=== PATIENT | male | born 1950 | race Caucasian/White ===

== ENCOUNTER 2017-05-07 13:00 | Day surgery (SDC) | payer OTHER ==
--- NOTE | 2017-05-06 12:55 | PCM.HPANE ---
Patient Data Surgeon Admitting Provider: Attending Provider:Surya Kowalski MD Primary Care Physician:Marci Jacinto Other Provider:Karol Person Anesthesia Reason for Visit Alcoholic Cirrhosis Of The Liver Ht/WT & BMI Body Mass Index Allergies Coded Allergies: No Known Allergies (Verified Allergy, Unknown, 05/06/17) Past Anesthesia History Anesthesia History: Denies:: Abnormal Airway, Anesthesia Reactions, Difficult Intubation, Fam Anesthesia Reaction, Fam Malignant Hypertherm, Malignant Hyperthermia Diabetes History Hx Diabetes?: No Medications Reported Medications Omeprazole 40 Mg Capsule.dr40 Mg PO DAILY Ref 0 05/06/17 Metoprolol Succinate ER 25 Mg Tab.er.24h25 Mg PO DAILY Ref 0 05/06/17 Furosemide (Lasix)40 Mg Tyukjj27 Mg PO DAILY 30 Days Ref 0 05/06/17 Lactulose 20 Gm/30 Ml Hkmdyozv62 Gm PO TID 05/06/17 Spironolactone (Aldactone)100 Mg Qzvamv410 Mg PO DAILY Ref 0 05/06/17 History History of ENT Problems?: Yes HEENT History: Denies:: Abnormal Airway Cataracts Difficult Intubation Dysphagia Glaucoma Hearing Problem Sinus Problem TMJ Denture Type: None Teeth Condition: Within Normal Limits Hx of Heart Problems?: Yes Cardiovascular History: Positive for:: Hypertension Denies:: AICD Abdominal Aortic Aneurism Atrial Fibrillation Cardiac Surgery Chest Pain Congestive Heart Failure Coronary Artery Disease Edema Heart Murmur Irregular Heartbeat Pacemaker Peripheral Vascular Rheumatic Fever Thrombophlebitis Valvular Heart Disease Hx of Respiratory Problem?: Yes Respiratory History: Denies:: Asthma COPD Chest Surgery Cough Dyspnea Emphysema Hemoptysis Oxygen Administration Pneumonia Pulmonary Embolism Tuberculosis Use of C-PAP Machine Use of Inhalers / NEBS Hx Neurologic Problems?: Yes Neurological History: Denies:: Alzheimer's Disease CVA Dementia Dizziness Headaches Multiple Sclerosis Parkinson's Disease Peripheral Neuropathy Seizures TIA Hx of GI Problems?: Yes Gastrointestinal History: Denies:: Cirrhosis Diverticulitis Gall Bladder Disease Gastroesphageal Reflux Gastrointestinal Bleeding Heartburn Hepatitis Hiatal Hernia Liver Disease Rectal Bleeding Hx of Problems?: Yes Genitourinary History: Denies:: HX of Hemodialysis Kidney Stones Urinary Tract Infection Male Hx: Denies:: Prostate Problems Scrotal Mass Testicular Surgery Skin History: Denies:: History Skin Disorders? Pressure Ulcers Hx Musculoskeletal Problems?: Yes Musculoskeletal History: Denies:: Back Injury Degenerative Joint Fibromyalgia Joint Replacement Musculoskeletal Trauma Myasthenia Gravis Osteoarthritis Rheumatoid Arthritis Systemic Lupus Hx of Psycho/Social Problems?: Yes Psycho Social History: Denies:: Anxiety Bipolar Disorder Hx Depression Suicide Attempt Hx Surgeries?: Yes Hx Any Other Health Problems?: Yes Other History: Denies:: Cancer Endocrine Disease Hospitalization Thyroid Disease History Blood Transfusions: Denies:: Accept Blood Products? Blood Transfuse Reaction Blood Transfusions Hx Diabetes: No Hx Alcohol Use: YesHx Substance Use: NoHave You Smoked inLast 12 mo: No Stop/Bang Risk Assessment Category Category 1A: Patient has history of documented sleep apnea, and HAS NOT received any narcotic, sedative or anesthesia administration during this stay. Category 1B: Patient has history of documented sleep apnea, and HAS received any narcotic , sedative or anesthesia administration during this stay Category 2: Patient has SUSPECTED Obstructive Sleep Apnea, and HAS received any narcotic , sedative or anesthesia administration during this stay. Category 3: Patient has SUSPECTED Obstructive Sleep Apnea and HAS NOT received narcotic, sedative or anesthesia administration during this stay. Category 4: Outpatient in Procedural Areas with known sleep apnea or who screen positive for High Risk via the STOP/BANG questionnaire. Exam Exam General Appearance: Alert, Oriented X3, Cooperative HEENT/AIRWAY: MP 2 Lungs: Clear to Auscultation Heart: Exam Unremarkable Plan Impression Patient chart reviewed, patient interviewed and anesthestic plan with risks, benefits, and alternatives discussed, and informed consent obtained. ASA Physical Status: ASA2 Mod Systemic Disease Anesthetic Plan: GA Bene/Risks/Altern/Consents: Yes HP Complete Prior to Induction: Yes Alan Vasquez MD May 06, 2017 12:55
[~2017-05-07] VITALS: Ht 188 cm; Wt 87.5 kg
[~2017-05-07 13:00] MED LIST: FURO-128 PO; LACT10SO60 PO; Lactated Ringer's 1,000 ML IV ONE; METO25TA99 PO; OMEP40CA36 PO; SPIR100T PO
[2017-05-07] MEDS ORDERED: Glycopyrrolate 0.2 MG/ML 1mL Inj ONE (13:01)
[2017-05-07] MEDS ORDERED: fentaNYL-PF 50 mCg/mL 2 mL Inj ONE (13:01)
[2017-05-07] MEDS ORDERED: Propofol 10,000 mCg/mL 20 mL Inj ONE (13:01)
[2017-05-07] MEDS ORDERED: EPHEDrine/NS 5 mg/mL 5 mL Syringe ONE (13:01)
[2017-05-07 13:30] VITALS: BP 129/75; PULSE 53; RESP 14; O2SAT 98
[2017-05-07] MEDS ORDERED: Ondansetron 2 mg/mL 2 mL Inj IVPUSH PRN (14:15)
[2017-05-07] MEDS ORDERED: MetoCLOpramide 5 mg/mL 2 mL Inj IVPUSH PRN (14:15)
[2017-05-07] MEDS ORDERED: Lactated Ringer's 1,000 ML IV SCH (14:15)
[2017-05-07 14:48] VITALS: BP 140/77; PULSE 74; RESP 16; O2SAT 99
[2017-05-07 14:58] VITALS: BP 141/83; PULSE 70; RESP 16; O2SAT 99
--- NOTE | 2017-05-07 15:00 | PCM.ANEP1 ---
Post Anesthesia PACU Phase 1 Assessment Vital Signs Vital Signs Date Time Temp Pulse Resp B/P Pulse Ox O2 Delivery O2 Flow Rate FiO2 05/07/17 14:58 70 16 141/83 99 Room Air 05/07/17 14:48 74 16 140/77 99 Room Air 05/07/17 13:30 36.4 53 14 129/75 98 Room Air Anesthetic Administered: GA Level of Alertness: Awake, talking MCMAHAN's with Equal Strength: Yes Pain: No Nausea or Vomiting: No CV Function & Hydration Stable: Yes Airway Device: Oxygen Delivery: Room Air Lungs: Clear to Auscultation PACU Phase 2 Assessment Complications: No Follow up Care: No Patient Instructions Provided: N/A Alan Vasquez MD May 07, 2017 15:00
--- NOTE | 2017-05-07 16:01 | ENDO ---
[address] [address] ENDOSCOPY PROCEDURE PATIENT: BIRD GALAN : 1950 MR#: [id number] ADMIT: 05/07/2017 JOB ID: [id number] DATE: 05/07/2017 TYPE OF OPERATION: EGD with esophageal banding x3. PREOPERATIVE DIAGNOSIS: Cirrhosis and esophageal varices. POSTOPERATIVE DIAGNOSIS(ES): 1. Moderate portal hypertensive gastropathy. 2. grade 2 esophageal varices, four columns, distal esophagus, status post banding x3, Without red jia sign. ANESTHESIA: Monitored anesthesia care. COMPLICATIONS: None. BLOOD LOSS: Minimal. DESCRIPTION OF PROCEDURE: After risks and benefits explained to the patient, informed consent was obtained. After anesthesia administered, upper endoscope was inserted into the mouth, intubated into the esophagus, stomach, second portion of duodenum. Mucosa carefully examined. After procedure was done, the scope was withdrawn and the procedure terminated. FINDINGS: Upon inspection of the esophagus, there were four columns of grade 2 esophageal varices without red jia sign. Z-line located 40 cm from incisors. Upon entering the stomach, there was mild portal hypertensive gastropathy. No masses or ulcers were seen. Retroflexion showed no evidence of gastric varices. Duodenal bulb, 1st and 2nd portion were normal. Afterwards, three bands were deployed from distal to proximal in fashion in the esophagus at the esophageal varices successfully. IMPRESSION: 1. Moderate portal hypertensive gastropathy. 2. Four columns of grade 2 esophageal varices, status post banding x3. RECOMMENDATIONS: 1. Soft diet. 2. Repeat EGD with anesthesia for repeat banding for esophageal varices in two weeks as an outpatient. 3. Follow up in GI clinic as needed.
== END 2017-05-07 23:59 | disposition home or self-care (01) ==
LOC: END 13:00
PROVIDERS: ATTEND Internal Medicine Gastroenterology
DX: K70.30 Alcoholic cirrhosis of liver without ascites (principal); I85.10 Secondary esophageal varices without bleeding; K76.6 Portal hypertension; K31.89 Other diseases of stomach and duodenum; Z87.891 Personal history of nicotine dependence
CPT/HCPCS: 43244; J2250; J3010; J7120

== ENCOUNTER 2017-05-24 09:18 | Day surgery (SDC) | payer OTHER ==
[~2017-05-24] VITALS: Ht 188 cm; Wt 87.0 kg
[~2017-05-24 09:18] MED LIST changes: -Lactated Ringer's 1,000 ML IV ONE; +Lactated Ringer's 1,000 ML IV SCH; +MELA1TAB9 PO
[2017-05-24] MEDS ORDERED: Ketamine 10 mg/mL 20 mL Inj ONE (09:19)
[2017-05-24] MEDS ORDERED: Ondansetron 2 mg/mL 2 mL Inj ONE (09:19)
[2017-05-24] MEDS ORDERED: Propofol 10,000 mCg/mL 20 mL Inj ONE (09:19)
[2017-05-24] MEDS ORDERED: Glycopyrrolate 0.2 MG/ML 1mL Inj ONE (09:19)
[2017-05-24 09:27] VITALS: BP 131/76; PULSE 58; O2SAT 96
--- NOTE | 2017-05-24 09:48 | PCM.HPANE ---
Patient Data Date of Service: May 24, 2017 Surgeon Admitting Provider: Attending Provider:Surya Kowalski MD Primary Care Physician:Marci Jacinto Other Provider:Karol Person Anesthesia Reason for Visit Bleeding Esophageal Varcies Ht/WT & BMI Height (Feet): 6 Height (Inches): 2 Weight (Kilograms): 87 Body Mass Index 24.00 Allergies Coded Allergies: No Known Allergies (Verified Allergy, Unknown, 05/24/17) Past Anesthesia History Anesthesia History: Denies:: Abnormal Airway, Anesthesia Reactions, Difficult Intubation, Fam Anesthesia Reaction, Fam Malignant Hypertherm, Malignant Hyperthermia Diabetes History Hx Diabetes?: No MRSA MRSA: No Medications Hypertension Medication: Yes Home Meds Incl Beta Bimal: Yes Date Beta Bimal Taken: May 23, 2017 Time Beta Bimal Taken: 09:00 Reported Medications Melatonin 1 Mg Tablet1 Mg PO HS 05/23/17 Omeprazole 40 Mg Capsule.dr40 Mg PO DAILY Ref 0 05/06/17 Metoprolol Succinate ER 25 Mg Tab.er.24h25 Mg PO DAILY Ref 0 05/06/17 Furosemide (Lasix)40 Mg Gjvvau80 Mg PO DAILY 30 Days Ref 0 05/06/17 Lactulose 20 Gm/30 Ml Rbfvwlsb34 Gm PO TID 05/06/17 Spironolactone (Aldactone)100 Mg Iavlfw990 Mg PO DAILY Ref 0 05/06/17 History History of ENT Problems?: Yes HEENT History: Denies:: Abnormal Airway Difficult Intubation Dysphagia Hearing Problem Denture Type: None Teeth Condition: Within Normal Limits Hx of Heart Problems?: Yes Cardiovascular History: Positive for:: Hypertension Denies:: AICD Atrial Fibrillation Chest Pain Congestive Heart Failure Pacemaker Valvular Heart Disease Hx of Respiratory Problem?: Yes Respiratory History: Positive for:: Cough Denies:: Asthma COPD Hemoptysis Pneumonia Tuberculosis Other Resp Pertinent History: non-productive cough since 04/2017 Hx Neurologic Problems?: No Neurological History: Denies:: CVA Seizures TIA Hx of GI Problems?: Yes Gastrointestinal History: Positive for:: Cirrhosis Hepatitis Liver Disease Other GI Pertinent History: esophageal varices Hx of Problems?: No HX of Peritoneal Dialysis: No Male Hx: Denies:: Prostate Problems Scrotal Mass Testicular Surgery Skin History: Denies:: History Skin Disorders? Pressure Ulcers Hx Musculoskeletal Problems?: No Musculoskeletal History: Denies:: Joint Replacement Psycho Social History: Denies:: Anxiety Hx Depression Hx Surgeries?: Yes (UMBILICAL HERNIA X2, ING HERNIA, ) Hx Any Other Health Problems?: Yes History Blood Transfusions: Positive for:: Accept Blood Products? Blood Transfusions Hx Diabetes: No Hx Alcohol Use: Yes (occasional alcohol use, none since 12/2016)Hx Substance Use : No Smoking Status: Former Smoker Have You Smoked inLast 12 mo: No Stop/Bang Treated for Sleep Apnea?: No Do You Have a CPAP Machine?: No S-Snoring: Do You Snore Loudly: No T-Tired: feel tired, fatigued: No O-Obsered: Observed not breath: No P-Blood Pressure: treated: Yes B- Body Mass Index > 35 kg/m2: No A- Age over 50: Yes N- Neck Large Circumference: No G- Gender Male: Yes VIVIAN Total Score: 3 VIVIAN Risk Assessment: Low Risk, <3 Yes Risk Assessment Category Category 1A: Patient has history of documented sleep apnea, and HAS NOT received any narcotic, sedative or anesthesia administration during this stay. Category 1B: Patient has history of documented sleep apnea, and HAS received any narcotic , sedative or anesthesia administration during this stay Category 2: Patient has SUSPECTED Obstructive Sleep Apnea, and HAS received any narcotic , sedative or anesthesia administration during this stay. Category 3: Patient has SUSPECTED Obstructive Sleep Apnea and HAS NOT received narcotic, sedative or anesthesia administration during this stay. Category 4: Outpatient in Procedural Areas with known sleep apnea or who screen positive for High Risk via the STOP/BANG questionnaire. Exam Exam Vital Signs Vital Signs Date Time Temp Pulse Resp B/P Pulse Ox O2 Delivery O2 Flow Rate FiO2 05/24/17 09:27 36.5 58 131/76 96 Room Air General Appearance: Alert, Oriented X3, Cooperative, No Acute Distress HEENT/AIRWAY: MP 3, Neck Movement (from), Mouth Opening (>3), Other (TMD>3) Lungs: Normal Air Movement Heart: Exam Unremarkable, Regular Rate/Rhythm, Normal S1, Normal S2, No Murmurs /Rubs/Gallops Plan Impression Patient chart reviewed, patient interviewed and anesthestic plan with risks, benefits, and alternatives discussed, and informed consent obtained. NPO per Anesth. Guidelines: Yes ASA Physical Status: ASA3 Severe Disease Anesthetic Plan: TIVA Bene/Risks/Altern/Consents: Yes HP Complete Prior to Induction: Yes Suraj Estevez MD May 24, 2017 09:48
[2017-05-24 10:08] VITALS: BP 106/66; PULSE 66; RESP 16; O2SAT 97
[2017-05-24 10:18] VITALS: BP 106/65; PULSE 67; RESP 16; O2SAT 100
[2017-05-24 10:28] VITALS: BP 138/76; PULSE 59; RESP 16; O2SAT 100
--- NOTE | 2017-05-24 10:44 | ENDO ---
[address] [address] ENDOSCOPY PROCEDURE PATIENT: BIRD GALAN : 1950 MR#: [id number] ADMIT: 05/24/2017 JOB ID: [id number] DATE: 05/24/2017 TYPE OF OPERATION: Esophagogastroduodenoscopy. PREOPERATIVE DIAGNOSIS(ES): 1. Cirrhosis. 2. Esophageal varices. POSTOPERATIVE DIAGNOSIS(ES): 1. Complete obliteration of esophageal varices from prior banding. 2. Moderate portal hypertensive gastropathy. ANESTHESIA: Monitored anesthesia care. COMPLICATIONS: None. BLOOD LOSS: Minimal. DESCRIPTION OF PROCEDURE: After risks and benefits were explained to the patient, informed consent was obtained. After anesthesia administered, upper endoscope was then inserted into the mouth,intubating through the esophagus, stomach, second portion of duodenum. Mucosa carefully examined. After procedure was done, the scope withdrawn and procedure terminated. FINDINGS: Upon inspection of the esophagus, the esophagus showed two ulcers in distal esophagus from prior banding. The esophageal varices that were previously seen were completely obliterated. Z-line located 40 cm from incisors. Upon entering the stomach, there was moderate portal hypertensive gastropathy. No gastric varices were seen on retroflexion. Duodenal bulb, first and second portion were normal. IMPRESSIONS: 1. Complete obliteration of esophageal varices. 2. Moderate portal hypertensive gastropathy. RECOMMENDATIONS: 1. Repeat upper endoscopy in one month with anesthesia for varices surveillance after obliteration. 2. Followup in GI clinic as needed.
--- NOTE | 2017-05-24 12:55 | PCM.ANEP1 ---
Post Anesthesia PACU Phase 1 Assessment Date of Service: May 24, 2017 Vital Signs Vital Signs Date Time Temp Pulse Resp B/P Pulse Ox O2 Delivery O2 Flow Rate FiO2 05/24/17 10:28 59 16 138/76 100 Room Air 05/24/17 10:18 67 16 106/65 100 Room Air 05/24/17 10:08 36.5 66 16 106/66 97 Room Air 05/24/17 09:27 36.5 58 131/76 96 Room Air Anesthetic Administered: TIVA Level of Alertness: Awake, talking MCMAHAN's with Equal Strength: Yes Pain: No Pain Scale Score: 0 Nausea or Vomiting: No CV Function & Hydration Stable: Yes Airway Device: none in PACU Oxygen Delivery: Room Air Lungs: Normal Air Movement Summary 05/24/17 10:28 59 16 138/76 100 Room Air PACU Phase 2 Assessment Complications: No Follow up Care: N/A Patient Instructions Provided: N/A Suraj Estevez MD May 24, 2017 12:55
== END 2017-05-24 23:59 | disposition home or self-care (01) ==
LOC: END 09:18
PROVIDERS: ATTEND Internal Medicine Gastroenterology
DX: K76.6 Portal hypertension (principal); K31.89 Other diseases of stomach and duodenum; K70.31 Alcoholic cirrhosis of liver with ascites; I10 Essential (primary) hypertension; K92.0 Hematemesis; F10.21 Alcohol dependence, in remission; Z87.891 Personal history of nicotine dependence
CPT/HCPCS: 43235; J2250; J2405; J7120

== ENCOUNTER 2017-06-25 09:30 | Day surgery (SDC) | payer OTHER ==
[~2017-06-25] VITALS: Ht 188 cm; Wt 90.7 kg
[~2017-06-25 09:30] MED LIST changes: -Lactated Ringer's 1,000 ML IV SCH
[2017-06-25] MEDS ORDERED: Propofol 10,000 mCg/mL 20 mL Inj ONE (09:31)
[2017-06-25 09:46] VITALS: BP 132/79; PULSE 75; O2SAT 100
[2017-06-25] MEDS ORDERED: MetoCLOpramide 5 mg/mL 2 mL Inj IVPUSH PRN (10:15)
[2017-06-25] MEDS ORDERED: Lactated Ringer's 1,000 ML IV SCH (10:15)
[2017-06-25] MEDS ORDERED: Ondansetron 2 mg/mL 2 mL Inj IVPUSH PRN (10:15)
--- NOTE | 2017-06-25 10:15 | PCM.HPANE ---
Patient Data Surgeon Admitting Provider: Attending Provider:Surya Kowalski MD Primary Care Physician:Marci Jacinto Other Provider:Karol Person Anesthesia Reason for Visit Bleeding Esophageal Varices Ht/WT & BMI Body Mass Index Allergies Coded Allergies: No Known Allergies (Verified Allergy, Unknown, 06/21/17) Past Anesthesia History Anesthesia History: Denies:: Abnormal Airway, Anesthesia Reactions, Difficult Intubation, Fam Anesthesia Reaction, Fam Malignant Hypertherm, Malignant Hyperthermia Diabetes History Hx Diabetes?: No MRSA MRSA: No Medications Reported Medications Melatonin 1 Mg Tablet1 Mg PO HS 05/23/17 Metoprolol Succinate ER 25 Mg Tab.er.24h25 Mg PO DAILY Ref 0 05/06/17 Furosemide (Lasix)40 Mg Mdxomw33 Mg PO DAILY 30 Days Ref 0 05/06/17 Lactulose 20 Gm/30 Ml Jasvzuji11 Gm PO TID 05/06/17 Discontinued Reported Medications Omeprazole 40 Mg Capsule.dr40 Mg PO DAILY Ref 0 05/06/17 Spironolactone (Aldactone)100 Mg Eqjwml577 Mg PO DAILY Ref 0 05/06/17 History History of ENT Problems?: Yes HEENT History: Denies:: Abnormal Airway Difficult Intubation Dysphagia Hearing Problem Denture Type: None Teeth Condition: Within Normal Limits Hx of Heart Problems?: Yes Cardiovascular History: Positive for:: Hypertension Denies:: AICD Atrial Fibrillation Chest Pain Congestive Heart Failure Pacemaker Valvular Heart Disease Hx of Respiratory Problem?: Yes Respiratory History: Positive for:: Cough Denies:: Asthma COPD Hemoptysis Pneumonia Tuberculosis Hx Neurologic Problems?: No Neurological History: Denies:: CVA Seizures Hx of GI Problems?: Yes Hx of Problems?: No HX of Peritoneal Dialysis: No Male Hx: Denies:: Prostate Problems Scrotal Mass Testicular Surgery Skin History: Denies:: History Skin Disorders? Pressure Ulcers Hx Musculoskeletal Problems?: No Musculoskeletal History: Denies:: Joint Replacement Psycho Social History: Denies:: Anxiety Hx Depression Hx Surgeries?: Yes (UMBILICAL HERNIA X2, ING HERNIA, ) Hx Any Other Health Problems?: Yes History Blood Transfusions: Positive for:: Blood Transfusions Hx Diabetes: No Hx Alcohol Use: Yes (occasional alcohol use, none since 12/2016)Hx Substance Use : No Smoking Status: Former Smoker Have You Smoked inLast 12 mo: No Stop/Bang Risk Assessment Category Category 1A: Patient has history of documented sleep apnea, and HAS NOT received any narcotic, sedative or anesthesia administration during this stay. Category 1B: Patient has history of documented sleep apnea, and HAS received any narcotic , sedative or anesthesia administration during this stay Category 2: Patient has SUSPECTED Obstructive Sleep Apnea, and HAS received any narcotic , sedative or anesthesia administration during this stay. Category 3: Patient has SUSPECTED Obstructive Sleep Apnea and HAS NOT received narcotic, sedative or anesthesia administration during this stay. Category 4: Outpatient in Procedural Areas with known sleep apnea or who screen positive for High Risk via the STOP/BANG questionnaire. Exam Exam General Appearance: Alert HEENT/AIRWAY: MP 2, Neck Movement (FROM, 3 FB) Plan Impression Patient chart reviewed, patient interviewed and anesthestic plan with risks, benefits, and alternatives discussed, and informed consent obtained. NPO per Anesth. Guidelines: Yes ASA Physical Status: ASA3 Severe Disease Anesthetic Plan: MAC Bene/Risks/Altern/Consents: Yes HP Complete Prior to Induction: Yes Edward Livingston MD Jun 25, 2017 09:39
[2017-06-25] MEDS: Lactated Ringer's 1,000 ML IV ONE ×2 (10:18→10:24)
[2017-06-25 10:30] VITALS: BP 116/70; PULSE 76; RESP 16; O2SAT 97
--- NOTE | 2017-06-25 10:37 | PCM.ANEP1 ---
Post Anesthesia PACU Phase 1 Assessment Vital Signs Vital Signs Date Time Temp Pulse Resp B/P Pulse Ox O2 Delivery O2 Flow Rate FiO2 06/25/17 10:30 76 16 116/70 97 Room Air 06/25/17 09:46 37.1 75 132/79 100 Room Air Anesthetic Administered: MAC Level of Alertness: Awake, talking MCMAHAN's with Equal Strength: Yes Pain: No Nausea or Vomiting: No CV Function & Hydration Stable: Yes Airway Device: Oxygen Delivery: Room Air Lungs: Clear to Auscultation Dermatome Level: Full Sensation PACU Phase 2 Assessment Complications: No Follow up Care: N/A Patient Instructions Provided: N/A Edward Livingston MD Jun 25, 2017 10:37
[2017-06-25 10:40] VITALS: BP 121/73; PULSE 70; RESP 16; O2SAT 97
[2017-06-25 10:50] VITALS: BP 130/69; PULSE 61; RESP 16; O2SAT 97
--- NOTE | 2017-06-25 11:01 | ENDO ---
[address] [address] ENDOSCOPY PROCEDURE PATIENT: BIRD GALAN : 1950 MR#: [id number] ADMIT: 06/25/2017 JOB ID: [id number] DATE OF SURGERY: 06/25/2017 TYPE OF OPERATION: Esophagogastroduodenoscopy. PREOPERATIVE DIAGNOSIS(ES): Esophageal varices surveillance, cirrhosis. POSTOPERATIVE DIAGNOSIS(ES): 1. Complete obliteration esophageal varices. 2. Moderate portal hypertensive gastropathy. ANESTHESIA: Monitored anesthesia care. COMPLICATIONS: None. BLOOD LOSS: Minimal. DESCRIPTION OF PROCEDURE: After risks and benefits were explained, the informed consent was obtained. After anesthesia administered, upper endoscope was inserted into the mouth, intubated the esophagus, stomach, second portion of duodenum mucosa is carefully examined. After the procedure done, the scope withdrawn and procedure terminated. FINDINGS: Upon inspection esophagus showed no evidence of esophageal varices from complete obliteration from prior banding. Z-line located at 45 cm from incisors. Upon entering the stomach, there was moderate portal hypertensive gastropathy. Retroflexion showed no gastric varices. Duodenal bulb, first and second portion normal. IMPRESSIONS: 1. Stable complete obliteration esophageal varices. 2. Moderate portal hypertensive gastropathy. RECOMMENDATIONS: Repeat upper endoscopy in 6 months with anesthesia for esophageal varices surveillance after obliteration. Follow up in GI clinic as needed.
== END 2017-06-25 23:59 | disposition home or self-care (01) ==
LOC: END 09:30
PROVIDERS: ATTEND Internal Medicine Gastroenterology
DX: I85.01 Esophageal varices with bleeding (principal); K76.6 Portal hypertension; K31.89 Other diseases of stomach and duodenum; I10 Essential (primary) hypertension; R05 Cough; Z87.891 Personal history of nicotine dependence; Z79.899 Other long term (current) drug therapy
CPT/HCPCS: 43235; J2250; J2704; J7120

== ENCOUNTER 2017-07-15 05:35 | Inpatient (IN) | payer OTHER ==
[2017-07-15] VITALS (14 sets, daily range): BP systolic 105–146; BP diastolic 58–79; PULSE 15–105; RESP 13–20; O2SAT 95–100
[~2017-07-15] VITALS: Ht 188 cm; Wt 89.4 kg
[~2017-07-15 05:35] MED LIST changes: +METO-386 PO; -METO25TA99 PO; -OMEP40CA36 PO; -SPIR100T PO
[2017-07-15] MEDS ORDERED: 0.9% Sodium Chloride 1,000 ML IV ONE ×2 (05:42→05:47)
[2017-07-15] MEDS ORDERED: Ondansetron 2 mg/mL 2 mL Inj IVPUSH ONE (05:45)
[2017-07-15] MEDS ORDERED: Pantoprazole 4 mg/mL 10 mL Inj IVPUSH ONE (05:45)
[2017-07-15] MEDS ORDERED: Pantoprazole Inj 80 MG, Pharmacy To Mix 1 EA in 0.9% Sodium Chloride 80 ML IV ONE ×2 (05:50)
[2017-07-15] MEDS ORDERED: Octreotide Inj 500 MCG in 0.9% Sodium Chloride 100 ML IV ONE (05:50)
[2017-07-15 06:05] LABS: BASOPHILS % (AUTO) 0.1 % (0-3); EOSINOPHILS % (AUTO) 0.1 % (0-5); MONOCYTES % (AUTO) 5.1 % (4-12); Mean Corpuscular Hemoglobin 33.3 pg (27.0-35.0); Mean Corpuscular Volume 98.2 fL (81-100); NEUTROPHILS % (AUTO) 84.7 % (40-74); Platelet Count 166 bil/L (150-400)
[2017-07-15] MEDS ORDERED: cefTRIAXone Inj 1,000 MG, Lidocaine PF 1% Inj 2.1 ML in Syringe 0 EACH IM ONE (06:15)
--- NOTE | 2017-07-15 06:15 | ED.REPORT ---
HPI-General Illness Date of Service Jul 15, 2017 ED Provider: Salvador Waterman MD This is a 66-year-old male with history of alcoholic cirrhosis status post TIPS procedure and esophageal varices status post banding 6 weeks prior who presents to the emergency department for black diarrhea and vomiting. Patient reports this has been going on since yesterday afternoon. He has had about 20 episodes of black diarrhea since then and 2 episodes of coffee-ground emesis this morning. The symptoms are similar to prior esophageal varices requiring banding. He does not have any abdominal pain associated with this. He does report having dizziness and subjective fever with chills starting this morning. He denies chest pain, cough or urinary changes. Patient reports he did have a possible syncopal episode finding himself on the ground and denies hitting his head. Nursing Notes Stated Complaint: VOMITING/GI BLEED Chief Complaint: Male Abdominal Pain Nursing Notes Reviewed: Yes Allergies: Coded Allergies: No Known Allergies (Verified Allergy, Unknown, 07/15/17) Scheduled Furosemide (Furosemide) 40 Mg Tablet 40 MG PO DAILY Lactulose (Lactulose) 10 Gm/15 Ml Solution 30 ML PO TID Melatonin (Melatonin) 3 Mg Tablet 3 MG PO HS Spironolactone (Spironolactone) 100 Mg Tablet 100 MG PO DAILY Scheduled PRN Naproxen Sodium (Aleve) 220 Mg Capsule 220 MG PO PRN For Pain General Time Seen by MD: 05:44 Chief Complaint Blood in stool Hx Obtained From: Patient Past Medical History Past Medical History Alcoholic cirrhosis status post TIPS procedure Esophageal varices with banding Past Surgical History TIPS procedure Hernia repair Smoking History Former Smoker Social History Alcohol Use: Denies alcohol use Drug Use: Denies drug use Review of Systems Full Review of Systems Constitutional: Reports: Chills, Fever (subjective) Eyes: Denies: Blurred bilateral Ears / Nose / Throat: Denies: Sore throat Respiratory: Reports: Shortness of breath Cardiovascular: Denies: Chest pain GI: Reports: Bloody/tarry stool, Diarrhea, Hematemesis, Nausea, Vomiting, Denies: Abdominal pain Male: Denies Dysuria Musculoskeletal: Denies: Back pain, Neck pain Hematologic: Denies Bruising Endocrine: Denies: Polyuria Skin: Denies Rash Allergy / Immune: Denies: Itching Neurologic: Denies: Confusion Psychiatric: Denies: Change mental status Complete sys rev & neg: except as marked. Physical Exam Vital Signs Vital Signs Date Time Temp Pulse Resp B/P Pulse Ox O2 Delivery O2 Flow Rate FiO2 07/15/17 09:13 86 15 120/62 99 Room Air 07/15/17 07:20 15 13 123/58 100 Room Air 07/15/17 05:41 36.3 105 17 139/74 100 Room Air Initial VS: Reviewed General/Constitutional: Well-developed, Well-nourished Head / Eyes: Atraumatic, Normocephalic ENT: Mucous membranes moist, Conjunctiva normal, No scleral icterus Neck: Supple, Full range of motion Respiratory: Breath sounds normal, Clear to auscultation, No respiratory distress Cardiovascular: Heart sounds normal, Intact distal pulses Abdomen / GI: Soft, Non-tender, No guarding, No rebound, No distention Skin: Warm, Dry Neurologic: Alert, Oriented, Nonfocal Psychiatric: Mood/affect normal, Behavior normal, Normal thought content General/Constitutional: Awake, Alert, No acute distress, Cooperative, Not toxic appearing Head / Eyes: No scleral icterus, Conjunctiva NL Heart Rate / Rhythm: Positive: Tachycardia Interpretation & Diagnostics Lab Results Interpretation Result Diagram: 07/15/17 0555 07/15/17 0555 Test 07/15/17 05:55 07/15/17 08:50 White Blood Count 11.2th/mm3 (3.8-10.1) Red Blood Count 2.85mil/mm3 (4.40-5.80) Hemoglobin 9.5g/dL (13.8-17.2) Hematocrit 28.0% (41.0-50.0) Mean Corpuscular Volume 98.2fL (81-100) Mean Corpuscular Hemoglobin 33.3pg (27.0-35.0) Mean Corpuscular Hemoglobin Concent 33.9% (32.0-37.0) Red Cell Distribution Width 17.4% (12.3-15.4) Platelet Count 166bil/L (150-400) Neutrophils (%) (Auto) 84.7% (40-74) Lymphocytes (%) (Auto) 9.7% (14-46) Monocytes (%) (Auto) 5.1% (4-12) Eosinophils (%) (Auto) 0.1% (0-5) Basophils (%) (Auto) 0.1% (0-3) Prothrombin Time 15.1sec (8.1-12.5) Prothromb Time International Ratio 1.40ratio Sodium Level 138mEq/L (134-144) Potassium Level 5.0mEq/L (3.5-5.2) Chloride Level 102mEq/L (97-108) Carbon Dioxide Level 17mmol/L (18-29) Blood Urea Nitrogen 45mg/dL (8-27) Creatinine 0.85mg/dL (0.76-1.27) Estimat Glomerular Filtration Rate 96mL/min (>59) Glucose Level 137mg/dL (60-99) Calcium Level 9.6mg/dL (8.5-10.1) Magnesium Level 1.8mg/dL (1.6-2.6) Total Bilirubin 1.8mg/dL (0.0-1.2) Aspartate Amino Transf (AST/SGOT) 53U/L (0-50) Alanine Aminotransferase (ALT/SGPT) 36U/L (0-44) Alkaline Phosphatase 84U/L (25-160) Troponin T 0.010ug/L (0.0-0.011) Total Protein 6.2g/dL (6.4-8.4) Albumin 3.2g/dL (3.4-5.0) Hold Farnsworth Top Tube Received (Received) Urine Color Yellow (YELLOW) Urine Appearance Clear (CLEAR,HAZY) Urine pH 6.0 (5.0-8.0) Urine Specific Freer 1.025 (1.003-1.035) Urine Protein Negativemg/dL (NEG,TRACE) Urine Glucose (UA) Negativemg/dL (NEGATIVE) Urine Ketones Negativemg/dL (NEGATIVE) Urine Occult Blood Negative (NEGATIVE) Urine Nitrite Negative (NEGATIVE) Urine Bilirubin Negative (NEGATIVE) Urine Urobilinogen Normalmg/dL (NORMAL) Urine Leukocyte Esterase Negative (NEGATIVE) Urine RBC 0-2/hpf (0-2) Urine WBC 0-5/hpf (0-5) Urine Epithelial Cells Few/hpf (NONE-MOD) Urine Crystals None seen (NONE SEEN) Urine Bacteria None/hpf (NONE-FEW) Urine Hyaline Casts 5/20/lpf (NONE) Urine Granular Casts None seen (NONE SEEN) Urine Waxy Casts None seen (NONE SEEN) Urine Red Blood Cell Casts None seen (NONE SEEN) Urine White Blood Cell Casts None seen (NONE SEEN) Urine Mucus Present (None Seen) Urine Trichomonas None seen (NONE SEEN) Urine Yeast None (NONE SEEN) Urinalysis Comment None Urine Culture Reflexed Not indicated Re-Eval/Medical Decision Med Decision/Clinical Course This 66-year-old male with history of alcoholic cirrhosis status post TIPS procedure and esophageal varices with banding in April 2017 presents to the emergency department for melena and hematemesis ongoing since yesterday. Patient has had prior symptoms with previous esophageal varices. He did have an endoscopy 06/25/[address] Kowalski which showed complete obliteration of esophageal varices at that time. As patient is presenting with similar symptoms to prior esophageal varices, concern is for GI bleed. Patient is hemodynamically stable in the ED. He did have 1 loose bowel movement while in the ED which was black and guaiac positive. On physical exam patient did not have any abdominal tenderness without any signs of ascites. Patient does have WBC 11.2, Hgb 9.5. AST 53, ALT 36, INR 1.40. Patient received IV fluid, ceftriaxone, octreotide and Protonix here in the emergency department. Plan is to admit the patient. Discussed with patient who verbalized understanding. Consulted with GI, Dr. Kowalski, who plans to do scope today. Will keep patient nothing by mouth. Consultation #1: Referral / Consult Name: Surya Kowalski MD Consulted With: On-call physician (Gastroenterology) Requested Call at: 06:58 Call Returned at: 07:00 Granulator Tender: Will see patient Note: Spoke with Dr. Kowalski who plans to do a scope today. Consultation #2: Referral / Consult Name: Jony Davis MD Consulted With: Hospitalist Granulator Tender: Accepts admit Counseled Regarding: Diagnosis, Lab results, Need for follow-up, When/why to return to ED Discharge & Departure Primary Impression: Melena Additional Impressions: Hematemesis Nausea presence: with nausea Qualified Code: K92.0 - Hematemesis Upper GI bleeding Disposition: ADMITTED TO HOSPITAL Discharge Condition All VS Reviewed: Yes Condition: Stable Referrals: Marci Jacinto PAC (PCP) Attending Statement I saw and evaluated the patient in conjunction with the resident. I agree with the findings, plan, and documentation noted above. Salvador Waterman MD Jul 15, 2017 06:15 Bhaskar Daigle DO Jul 15, 2017 06:41
[2017-07-15 06:21] LABS: INR 1.4 ratio
[2017-07-15 06:25] LABS: TROPONIN T 0.01 ug/L (0.0-0.011)
[2017-07-15] MEDS ORDERED: cefTRIAXone Inj 1,000 MG in Dextrose 5% Minibag Plus 50 ML IV ONE ×2 (06:30→06:51)
[2017-07-15 06:36] LABS: Magnesium 1.8 mg/dL (1.6-2.6)
[2017-07-15] MEDS ORDERED: cefTRIAXone 1,000 mg Inj ONE (06:48)
--- NOTE | 2017-07-15 08:55 | DRSVH ---
PROCEDURE: X-RAY CHEST ONE VIEW, PORTABLE ([id number]) INDICATIONS: vomiting, ugib TECHNIQUE: One view of the chest was acquired. COMPARISON: [facility], , CHEST 1VW (PORTABLE), 01/20/2008, 1:02. FINDINGS: Surgical changes and devices: None. Lungs and pleura: No pleural effusions or pneumothorax. Lungs are clear. Mediastinum: Mediastinal contours appear normal. Heart size is normal. Bones and chest wall: No suspicious bony lesions. Overlying soft tissues appear unremarkable. IMPRESSION: 1. No acute cardiopulmonary disease. Dictated by: Sherif Rodarte M.D. on 07/15/2017 at 8:46 Approved by: Sherif Rodarte M.D. on 07/15/2017 at 8:53
[2017-07-15] MEDS ORDERED: Ondansetron 2 mg/mL 2 mL Inj IVPUSH PRN (09:25)
[2017-07-15] MEDS ORDERED: Alum-Mag Hydrox-Simeth 30 mL Suspension PO PRN (09:25)
[2017-07-15] MEDS ORDERED: Polyethylene Glycol (PEG) 17 Gm Powder PO PRN (09:25)
[2017-07-15] MEDS ORDERED: SPIR100T3 PO (09:59)
[2017-07-15] MEDS ORDERED: FURO40TA4 PO (09:59)
[2017-07-15] MEDS ORDERED: LACT10SO PO (09:59)
[2017-07-15] MEDS ORDERED: MELA3TAB35 PO (10:00)
[2017-07-15] MEDS ORDERED: NAPR220C11 PO (10:01)
[2017-07-15] MEDS: Pantoprazole Inj 80 MG in 0.9% Sodium Chloride 80 ML IV SCH ×2 (10:26→17:13)
[2017-07-15] MEDS: 0.9% Sodium Chloride 1,000 ML IV SCH ×2 (10:26→17:13)
[2017-07-15] MEDS: Octreotide Inj 500 MCG in 0.9% Sodium Chloride 99 ML IV SCH ×2 (10:27→17:13)
[2017-07-15 10:34] LABS: APPEARANCE,URINE CLEAR (CLEAR,HAZY); COLOR,URINE YELLOW (YELLOW)
[2017-07-15 10:35] LABS: OCCULT BLOOD,URINE NEGATIVE (NEGATIVE); UROBILINOGEN,URINE NORMAL (NORMAL)
--- NOTE | 2017-07-15 10:43 | NUR ---
ADMIT Admitted a 66/M into room 3031 at 0940 following report from Yasmeen Escalera, ED RN. Pt A&Ox4, pleasant, denies any pain/discomfort at this time. Pt able to amb from stretcher to BR with SBA. He reports feeling a little dizzy with change of position, per MD hospitalist, pt is to be bedrest. Pt introduced to staff, bed/call light controls. Tele in place, SR in the 90's per environmental technician. Pt has IV x2, both infusing - one with Octreotide and one with NS and Protonix. Pt is NPO, aware that GI MD will be coming by to consult. Pt on RA, denies any SOB, no distress, tolerating activity well. Guaiac was (+) in ED. Bed in lowest, locked position and call light in reach.
[2017-07-15] MEDS ORDERED: fentaNYL-PF 50 mCg/mL 2 mL Inj ONE (12:18)
--- NOTE | 2017-07-15 12:40 | NUR ---
Off unit Pt off unit to Endo, report given to Michelle Grace RN. Addendum: 07/15/17 at 1430 by MISA STANLEY RN Pt back on unit at 1410, report rec'd from AMBREEN Martinez. at bedside, pt sleeping.
--- NOTE | 2017-07-15 13:17 | PCM.HPMED ---
Subjective Date of Service Jul 15, 2017 Primary Provider: Admitting Physician: Jony Davis MD Primary Care Physician: Marci Jacinto Attending Physician: Jony Davis MD Admit Status: From the Emergency Department, Full Admit, Admit to Blue Team Chief Complaint: Dark stool/2 days Vomiting of blood /1 day History of Present Illness: 66-year-old gentleman with past medical history of alcoholic cirrhosis s/p TIPS procedure and recent endoscopy with which showed stable complete obliteration esophageal varices and moderate portal hypertensive gastropathy presented with multiple episodes of dark stool which started yesterday. He also had vomiting today twice of coffee-ground matter . He is a normal alcoholic cirrhosis patient s/p TIPS procedure 8 years ago. He undergoes routine surveillance endoscopy, latest one on 06/25/17 which showed stable complete obliteration esophageal varices and moderate portal hypertensive gastropathy last alcohol drink Jul 2016 ED course: vitals and exam unremarkable . Hb 9.5,Tbili 1.8,AST 53,albumin 3.2 IV fluids ,octreotide drip and protonix drip started GI consulted Review of Systems: Comprehensive review of systems performed, pertinent positives and negatives included in history of present illness Allergies Coded Allergies: No Known Allergies (Verified Allergy, Unknown, 07/15/17) Home Medications Spironolactone 100 mg daily Lasix 40 mg daily Lactulose PMH Alcoholic cirrhosis status post TIPS procedure Esophageal varices with banding Surgical History TIPS procedure 8 yrs ago varice banding prior to TIPS Hernia repair Family History Mother alive, age 94. She has hypertension Father at age 69 due to heart attack Brother had diabetes, nephew ( from same brother ) has also diabetes Social History Hx Alcohol Use: No Hx Substance Use: No Smoking Status: Former Smoker Exam Vital Signs Vital Sign - Last Date Time Temp Pulse Resp B/P Pulse Ox O2 Delivery O2 Flow Rate FiO2 07/15/17 10:56 36.9 88 20 116/76 100 Room Air Intake and Output 07/14/17 07/14/17 07/15/17 Cumulative From/Thru 15:00 23:00 07:00 07/15/17 05:41 - 07/15/17 06:00 Intake Total 1000 ml 1000 ml Balance 1000 ml 1000 ml Intake IV Total 1000 ml 1000 ml Exam Gen. patient is lying comfortably in hospital bed HEENT: Head is normocephalic atraumatic, Pupils equal and reactive, extraocular movements intact, Lungs clear to auscultation bilaterally Heart regular rate and rhythm without murmurs gallops or rubs Abdomen soft nontender without hepatosplenomegaly Extremities pulses are present dorsalis pedis posterior tibialis and radial. tSkin is warm and dry there are no rashes, Psych alert and oriented to person place and time Neuro cranial nerves II through XII are grossly intact Lymph: There is no lymphadenopathy appreciated in the cervical supra infraclavicular regions : no escobedo Lab and Diagnostics Result Diagram: 07/15/1755407/15/17554 Additional Diagnostics: DATE OF SURGERY: 06/25/2017 TYPE OF OPERATION: Esophagogastroduodenoscopy. PREOPERATIVE DIAGNOSIS(ES): Esophageal varices surveillance, cirrhosis. POSTOPERATIVE DIAGNOSIS(ES): 1. Complete obliteration esophageal varices. 2. Moderate portal hypertensive gastropathy. ANESTHESIA: Monitored anesthesia care. COMPLICATIONS: None. BLOOD LOSS: Minimal. DESCRIPTION OF PROCEDURE: After risks and benefits were explained, the informed consent was obtained. After anesthesia administered, upper endoscope was inserted into the mouth, intubated the esophagus, stomach, second portion of duodenum mucosa is carefully examined. After the procedure done, the scope withdrawn and procedure terminated. FINDINGS: Upon inspection esophagus showed no evidence of esophageal varices from complete obliteration from prior banding. Z-line located at 45 cm from incisors. Upon entering the stomach, there was moderate portal hypertensive gastropathy. Retroflexion showed no gastric varices. Duodenal bulb, first and second portion normal. IMPRESSIONS: 1. Stable complete obliteration esophageal varices. 2. Moderate portal hypertensive gastropathy. Assessment & Plan 66-year-old gentleman with past medical history of alcoholic cirrhosis s/p TIPS procedure and recent endoscopy with which showed stable complete obliteration esophageal varices and moderate portal hypertensive gastropathy presented with dark stool and vomiting of coffee-ground matter # Upper GI bleeding due to bleeding portal hypertension gastropathy,poa,acute -IV fluids NS at 100ml/h ,octreotide and protonix drip started . Continue with that -GI Dr Kowalski consulted by ED and EGD done shortness of coffee-ground material in the stomach with portal hypertension gastropathy. Mild gastritis. No varices -was Initially npo but will start on clears now -bowel prep today and colonoscopy tomorrow as he never had one before. # Blood loss Anemia., Acute on chronic -Hb 9.5 -No need for transfusion now. Monitor hemoglobin # alcoholic cirrhosis -Continue Lasix, spironolactone tomorrow. Resume Lactulose today ppx dvt with scd due to GI bleed,ppi drip Full code per patient Patient admitted under inpatient status with expected length of stay > 2 midnights for severity of present symptoms, complexities of treatment plan and risk for adverse events copies to: Marci Jacinto Melaku MD Jul 15, 2017 13:17
--- NOTE | 2017-07-15 14:00 | CONS ---
[address] [address] CONSULTATION REPORT PATIENT: BIRD GALAN : 1950 MR#: [id number] ADMIT: 07/15/2017 JOB ID: [id number] DATE OF SERVICE: 07/15/2017 REASON FOR CONSULTATION: Melena. HISTORY OF PRESENT ILLNESS: A 66-year-old, male, well-known to myself, history of alcoholic cirrhosis status post TIPS procedure, history of esophageal varices with complete obliteration on recent upper endoscopy, June 25, 2017, also showing moderate portal hypertensive gastropathy, who presents for consultation for melena, diarrhea, and vomiting. The patient states yesterday he ate some eggs and started having melena and vomiting. The patient states he has had 20 episodes of black diarrhea and two episodes of coffee-ground emesis this morning. The patient's most recent upper endoscopy was performed by myself on June 25, 2017, which showed complete obliteration of esophageal varices and moderate portal hypertensive gastropathy. Patient presents for further evaluation. Patient denies bright red blood per rectum, abdominal pain, change in bowel habits, or unintentional weight loss. PAST MEDICAL HISTORY: As stated above. PAST SURGERIES: TIPS procedure, hernia repair. ALLERGIES: No known drug allergies. MEDICATION AT HOME: Lasix, lactulose, melatonin, metoprolol. SOCIAL HISTORY: Former smoker. No IV drug use. No alcohol. FAMILY HISTORY: Noncontributory. REVIEW OF SYSTEMS: The patient denies headache, blurred vision. Positive for nausea, vomiting. No chest pain, shortness of breath, palpitation, skin rash. PHYSICAL EXAMINATION: Vital signs upon presentation: Temperature is 36.3, pulse of 96, blood pressure 120/62, respiratory rate 15, satting 99% on room air. General: No distress. Head: No scars. Anicteric. Throat supple. Lungs: Clear to auscultation bilaterally. Cardiovascular: Regular rhythm and rate. Abdomen: Soft, nondistended, nontender. Normal bowel sounds. Extremities: No cyanosis, clubbing or edema. LABORATORIES: White count 11.2, hemoglobin 9.5, hematocrit 28, platelet count 166. Sodium 138, potassium 4.0, chloride 102, bicarb 17, BUN 45, creatinine 0.8. Glucose 137, calcium 9.6. Magnesium 1.8. Total bili 1.8, AST 53, ALT 36, alk phos 84. Troponin is negative. Total protein 6.2. Albumin 3.2. INR 1.4. PT 15.1. ASSESSMENT AND PLAN: This is a 66-year-old, male with history of alcoholic cirrhosis, status post TIPS procedure with complete obliteration of esophageal varices, although on most recent upper endoscopy performed on June 25, 2017, which also showed moderate portal hypertensive gastropathy, presents here with melena and coffee-ground emesis and black diarrhea. Differential diagnosis includes esophageal ulcers versus varices versus moderate portal hypertensive gastropathy which is most likely. At this point in time, I agree with the Protonix drip and octreotide and ceftriaxone for SBP prophylaxis. Also, recommend the patient to be checked for stool studies to rule out infection given his diarrhea. RECOMMENDATIONS: 1. Agree with Protonix drip. Octreotide drip. 2. Continue ceftriaxone. 3. Please check stool studies to rule out infection. 4. EGD to be performed.
--- NOTE | 2017-07-15 14:13 | NUR ---
Bowel prep Bowel prep started this evening at 1600. Pt educated on need to consume entire prep by 1999 this evening, safety precautions while getting up OOB with IV's x2. Pt remains forgetful/impulsive following EGD procedure this afternoon, bed alarm remains in place for safety. Bed in lowest, locked position and call light in reach. Addendum: 07/15/17 at 1855 by MISA STANLEY RN Pt having large, liquid bowel movements since starting Attachments.me which are a dark red in color.
[2017-07-15] MEDS ORDERED: PEG/Electrolytes 4,000 mL Solution PO ONE (16:00)
--- NOTE | 2017-07-15 16:34 | ENDO ---
[address] [address] ENDOSCOPY PROCEDURE PATIENT: BIRD GALAN : 1950 MR#: [id number] ADMIT: 07/15/2017 JOB ID: [id number] DATE OF SERVICE: 07/15/2017 PROCEDURE: Esophagogastroduodenoscopy. PREOPERATIVE DIAGNOSIS(ES): Melena. POSTOPERATIVE DIAGNOSIS(ES): 1. Mild nonerosive gastritis. 2. Moderate portal hypertensive gastropathy with some coffee-ground blood that was seen in the stomach most likely cause of the bleed. No active bleeding that was seen. 3. Complete obliteration of esophageal varices. ANESTHESIA: 1. Fentanyl 100 mcg. 2. Versed 9 mg IV administered. COMPLICATIONS: None. BLOOD LOSS: Minimal. DESCRIPTION OF PROCEDURE: After risks and benefits were explained to the patient, informed consent was obtained. After anesthesia administered, upper endoscope was then inserted into the esophagus, stomach, second portion of duodenum and mucosa carefully examined. After procedure was done, the scope was withdrawn and the procedure terminated with the following findings. Upon inspection of the esophagus, the esophagus appeared normal without masses, ulcers, or lesions. No esophageal varices were seen. Z-line located at 40 cm from incisors. Upon entering the stomach, there was coffee-ground that was seen with moderate portal hypertensive gastropathy, most likely the cause. There was also mild nonerosive gastritis. No masses, ulcers seen. Retroflexion was normal. Duodenal bulb, first and second portion were normal. IMPRESSIONS: 1. Mild nonerosive gastritis. 2. Coffee-ground material was seen in the stomach with mild portal hypertensive gastropathy that was seen most likely the cause. RECOMMENDATIONS: 1. Continue Protonix and Octreotide drip at this point in time. 2. GoLYTELY prep tonight for colonoscopy for tomorrow. The patient never had a colonoscopy in the past. Will continue to follow. [facility]
--- NOTE | 2017-07-15 22:33 | NUR ---
[facility] med: Verified with pharmacist that IV protonix and octreocide can infuse at y site together.
[2017-07-16] VITALS (14 sets, daily range): BP systolic 108–123; BP diastolic 64–80; PULSE 74–85; RESP 14–20; O2SAT 92–98
[2017-07-16] MEDS: 0.9% Sodium Chloride 1,000 ML IV SCH ×2 (03:46→14:21)
--- NOTE | 2017-07-16 06:40 | NUR ---
Uneventful Night: Pt had an uneventful night, no c/o pain, chest pain or SOB. Pt slept off/on throughout the night, pleasant and cooperative with care.
[2017-07-16 06:47] LABS: BASOPHILS % (AUTO) 0.7 % (0-3); EOSINOPHILS % (AUTO) 2.8 % (0-5); Mean Corpuscular Hemoglobin 32.8 pg (27.0-35.0); NEUTROPHILS % (AUTO) 59.8 % (40-74); Platelet Count 81 bil/L (150-400)
[2017-07-16] MEDS: Octreotide Inj 500 MCG in 0.9% Sodium Chloride 99 ML IV SCH ×2 (07:38→20:07)
[2017-07-16 07:40] LABS: Magnesium 1.7 mg/dL (1.6-2.6)
[2017-07-16] MEDS ORDERED: 0.9% Sodium Chloride 250 ML IV ONE (07:50)
--- NOTE | 2017-07-16 09:02 | NUR ---
Social Work-initial assessment: Data:See initial assessment. Pt is a 66 y/o male who was admitted on 07/15/17 for GI Bleed per H&P. Pt's insurance is [employer] and PCP is SOFIA Joshi. EMR reviewed. Pt's readmission score is 2. SW met with pt to discuss discharge planning, SW role explained. Pt is alert and oriented x3. SW met with pt at bedside, SW role explained. Pt resides at home with his and mother in law in [facility] where he remains independent with ADLS. Pt drives and does not use any DME. Pt has fww and cane at home. Pt has no HH or SNF history. Pt has no halfway care insurance or VA benefits. SW discussed DPOA/ advanced directive, pt confirms he has all the paperwork, but just needs to complete this, SW encouraged pt to work on this. SW provided pt with discharge planning checklist and encouraged pt to call with any questions, phone number provided on white board in room. No concerns noted around pt's capacity for self care from RN or MD. Pt's to provide transport home. No anticipated discharge needs. SW will continue to follow if needs arise. Assessment:Pt who is independent at baseline. Plan:Pt to discharge home when medically stable via POV. No anticipated discharge needs. SW will continue to follow if needs arise. CHANDA Vuong Addendum: 07/16/17 at 0921 by PAOLA PRAJAPATI SS Amended: Links added.
[2017-07-16] MEDS ORDERED: Propofol 10,000 mCg/mL 20 mL Inj ONE (09:58)
[2017-07-16] MEDS: Pantoprazole Inj 80 MG in 0.9% Sodium Chloride 80 ML IV SCH (11:28)
--- NOTE | 2017-07-16 13:34 | NUR ---
blood transfusion Pts morning ghb came back at 6.7. VS WNL. notified. 2 units PRBCs transfused over 4 hours. No s/s of transfusion reaction and VS remained WNL.
[2017-07-16] MEDS ORDERED: Lactated Ringer's 1,000 ML IV ONE (14:45)
[2017-07-16] MEDS ORDERED: Lactated Ringer's 1,000 ML IV SCH (14:46)
--- NOTE | 2017-07-16 14:46 | PCM.HPANE ---
Patient Data Date of Service: Jul 16, 2017 Surgeon Admitting Provider:Jony Davis MD Attending Provider:Jony Davis MD Primary Care Physician:Marci Jacinto Other Provider: Reason for Visit Gi Bleed Ht/WT & BMI Height (Feet): 6 Height (Inches): 2.00 Weight (Kilograms): 89.400 Body Mass Index 25.00 Allergies Coded Allergies: No Known Allergies (Verified Allergy, Unknown, 07/15/17) Past Anesthesia History Anesthesia History: Denies:: Abnormal Airway, Anesthesia Reactions, Difficult Intubation, Fam Anesthesia Reaction, Fam Malignant Hypertherm, Malignant Hyperthermia Diabetes History Hx Diabetes?: No MRSA MRSA: No Medications Hypertension Medication: No Home Meds Incl Beta Bimal: No Reported Medications Naproxen Sodium (Aleve)220 Mg [id number] Mg PO PRN For Pain 07/15/17 Melatonin 3 Mg Tablet3 Mg PO HS 07/15/17 Lactulose 10 Gm/15 Ml [id number] Ml PO TID #946 07/15/17 Furosemide 40 Mg [id number] Mg PO DAILY #90 07/15/17 Spironolactone 100 Mg [id number] Mg PO DAILY #90 07/15/17 Discontinued Reported Medications Melatonin 1 Mg Tablet1 Mg PO HS 05/23/17 Metoprolol Succinate ER 25 Mg Tab.er.24h25 Mg PO DAILY Ref 0 05/06/17 Furosemide (Lasix)40 Mg Pywyoe31 Mg PO DAILY 30 Days Ref 0 05/06/17 Lactulose 20 Gm/30 Ml [id number] Gm PO TID 05/06/17 History History of ENT Problems?: No HEENT History: Denies:: Abnormal Airway Cataracts Difficult Intubation Dysphagia Hearing Problem Sinus Problem Denture Type: None Teeth Condition: Broken Teeth Hx of Heart Problems?: Yes Cardiovascular History: Positive for:: Hypertension Denies:: AICD Atrial Fibrillation Cardiac Surgery Chest Pain Congestive Heart Failure Edema Heart Murmur Irregular Heartbeat Pacemaker Thrombophlebitis Valvular Heart Disease Hx of Respiratory Problem?: No Respiratory History: Denies:: Asthma COPD Chest Surgery Cough Dyspnea Emphysema Hemoptysis Pneumonia Tuberculosis Hx Neurologic Problems?: Yes (on lactulose) Neurological History: Denies:: Alzheimer's Disease CVA Dementia Dizziness Headaches Parkinson's Disease Seizures Hx of GI Problems?: Yes Gastrointestinal History: Positive for:: Cirrhosis (s/p TIPS) Gastrointestinal Bleeding (transfused this AM for Hct 20%) Hx of Problems?: No Genitourinary History: Denies:: HX of Hemodialysis Kidney Stones Urinary Tract Infection HX of Peritoneal Dialysis: No Male Hx: Denies:: Prostate Problems Scrotal Mass Testicular Surgery Skin History: Denies:: History Skin Disorders? Pressure Ulcers Hx Musculoskeletal Problems?: Yes Musculoskeletal History: Denies:: Back Injury Joint Replacement Musculoskeletal Trauma Hx of Psycho/Social Problems?: Yes Psycho Social History: Denies:: Anxiety Bipolar Disorder Hx Depression Suicide Attempt Hx Surgeries?: Yes (UMBILICAL HERNIA X2, ING HERNIA, Esophageal bands) Hx Any Other Health Problems?: Yes Other History: Denies:: Cancer Hospitalization Thyroid Disease History Blood Transfusions: Positive for:: Accept Blood Products? Blood Transfusions Denies:: Blood Transfuse Reaction Hx Diabetes: No Hx Alcohol Use: NoHx Substance Use: No Smoking Status: Former Smoker Have You Smoked inLast 12 mo: No Stop/Bang Treated for Sleep Apnea?: No Do You Have a CPAP Machine?: No S-Snoring: Do You Snore Loudly: No T-Tired: feel tired, fatigued: No O-Obsered: Observed not breath: No P-Blood Pressure: treated: No B- Body Mass Index > 35 kg/m2: No A- Age over 50: Yes N- Neck Large Circumference: No G- Gender Male: Yes VIVIAN Total Score: 2 VIVIAN Risk Assessment: Low Risk, <3 Yes Risk Assessment Category Category 1A: Patient has history of documented sleep apnea, and HAS NOT received any narcotic, sedative or anesthesia administration during this stay. Category 1B: Patient has history of documented sleep apnea, and HAS received any narcotic , sedative or anesthesia administration during this stay Category 2: Patient has SUSPECTED Obstructive Sleep Apnea, and HAS received any narcotic , sedative or anesthesia administration during this stay. Category 3: Patient has SUSPECTED Obstructive Sleep Apnea and HAS NOT received narcotic, sedative or anesthesia administration during this stay. Category 4: Outpatient in Procedural Areas with known sleep apnea or who screen positive for High Risk via the STOP/BANG questionnaire. Exam Exam Vital Signs Vital Signs Date Time Temp Pulse Resp B/P Pulse Ox O2 Delivery O2 Flow Rate FiO2 07/16/17 14:37 76 16 119/72 96 Room Air 07/16/17 13:20 37.0 76 18 116/65 07/16/17 10:48 36.8 78 18 110/67 98 Room Air 07/16/17 09:40 37.1 80 18 116/68 07/16/17 09:26 79 07/16/17 09:16 37.0 78 18 123/72 General Appearance: Alert, Oriented X3, Cooperative HEENT/AIRWAY: MP 2, Neck Movement (Full), Mouth Opening (Wide) Lungs: Clear to Auscultation, Normal Air Movement Heart: Regular Rate/Rhythm, Normal S1, Normal S2 Meds/Labs/Diagnostics Admission Meds Current Medications Polyethylene Glycol/ Electrolytes 4000 ml 4,000 ml ONCE ONCE PO Last administered on 07/15/17 16:01; Start 07/15/17 at 16:00; Stop 07/15/17 at 16:01; Status DC Sodium Chloride (Normal Saline) 250 ml @ 10 mls/hr Q24H ONCE IV Last administered on 07/16/17 11:29; Start 07/16/17 at 07:50; Stop 07/17/17 at 07:49 Labs Test 07/15/17 05:55 07/15/17 08:50 07/16/17 06:30 Prothrombin Time 15.1sec (8.1-12.5) Prothromb Time International Ratio 1.40ratio Troponin T 0.010ug/L (0.0-0.011) Hold [place] Top Tube Received (Received) Urine Color Yellow (YELLOW) Urine Appearance Clear (CLEAR,HAZY) Urine pH 6.0 (5.0-8.0) Urine Specific [place] 1.025 (1.003-1.035) Urine Protein Negativemg/dL (NEG,TRACE) Urine Glucose (UA) Negativemg/dL (NEGATIVE) Urine Ketones Negativemg/dL (NEGATIVE) Urine Occult Blood Negative (NEGATIVE) Urine Nitrite Negative (NEGATIVE) Urine Bilirubin Negative (NEGATIVE) Urine Urobilinogen Normalmg/dL (NORMAL) Urine Leukocyte Esterase Negative (NEGATIVE) Urine RBC 0-2/hpf (0-2) Urine WBC 0-5/hpf (0-5) Urine Epithelial Cells Few/hpf (NONE-MOD) Urine Crystals None seen (NONE SEEN) Urine Bacteria None/hpf (NONE-FEW) Urine Hyaline Casts 5/20/lpf (NONE) Urine Granular Casts None seen (NONE SEEN) Urine Waxy Casts None seen (NONE SEEN) Urine Red Blood Cell Casts None seen (NONE SEEN) Urine White Blood Cell Casts None seen (NONE SEEN) Urine Mucus Present (None Seen) Urine Trichomonas None seen (NONE SEEN) Urine Yeast None (NONE SEEN) Urinalysis Comment None Urine Culture Reflexed Not indicated White Blood Count 6.0th/mm3 (3.8-10.1) Red Blood Count 2.04mil/mm3 (4.40-5.80) Hemoglobin 6.7g/dL (13.8-17.2) Hematocrit 20.2% (41.0-50.0) Mean Corpuscular Volume 99.0fL (81-100) Mean Corpuscular Hemoglobin 32.8pg (27.0-35.0) Mean Corpuscular Hemoglobin Concent 33.2% (32.0-37.0) Red Cell Distribution Width 17.1% (12.3-15.4) Platelet Count 81bil/L (150-400) Neutrophils (%) (Auto) 59.8% (40-74) Lymphocytes (%) (Auto) 26.4% (14-46) Monocytes (%) (Auto) 10.0% (4-12) Eosinophils (%) (Auto) 2.8% (0-5) Basophils (%) (Auto) 0.7% (0-3) Sodium Level 139mEq/L (134-144) Potassium Level 4.3mEq/L (3.5-5.2) Chloride Level 109mEq/L (97-108) Carbon Dioxide Level 19mmol/L (18-29) Blood Urea Nitrogen 35mg/dL (8-27) Creatinine 0.81mg/dL (0.76-1.27) Estimat Glomerular Filtration Rate 102mL/min (>59) Glucose Level 91mg/dL (60-99) Calcium Level 7.8mg/dL (8.5-10.1) Magnesium Level 1.7mg/dL (1.6-2.6) Total Bilirubin 0.9mg/dL (0.0-1.2) Aspartate Amino Transf (AST/SGOT) 59U/L (0-50) Alanine Aminotransferase (ALT/SGPT) 34U/L (0-44) Alkaline Phosphatase 53U/L (25-160) Total Protein 4.6g/dL (6.4-8.4) Albumin 2.7g/dL (3.4-5.0) Plan Impression Patient chart reviewed, patient interviewed and anesthestic plan with risks, benefits, and alternatives discussed, and informed consent obtained. NPO per Anesth. Guidelines: Yes ASA Physical Status: ASA3 Severe Disease Anesthetic Plan: MAC Bene/Risks/Altern/Consents: Yes HP Complete Prior to Induction: Yes Geoff Arroyo MD Jul 16, 2017 14:40
[2017-07-16] MEDS ORDERED: MetoCLOpramide 5 mg/mL 2 mL Inj IVPUSH PRN (14:50)
[2017-07-16] MEDS ORDERED: Ondansetron 2 mg/mL 2 mL Inj IVPUSH PRN (14:50)
--- NOTE | 2017-07-16 15:37 | PCM.PNMED ---
Subjective Date of Service Jul 16, 2017 Subjective No further vomiting after endoscopy. Stool color improving to light brown on bowel prep. Hemoglobin 6.7 noted. 2 PRBCs ordered. Exam Vital Signs Vital Sign - Last Date Time Temp Pulse Resp B/P Pulse Ox O2 Delivery O2 Flow Rate FiO2 07/16/17 14:37 76 16 119/72 96 Room Air 07/16/17 13:20 37.0 07/15/17 13:15 2 Intake and Output 07/15/17 07/15/17 07/16/17 Cumulative From/Thru 15:00 23:00 07:00 07/15/17 05:41 - 07/15/17 21:51 Intake Total 1296 ml 518 ml 2814 ml Balance 1296 ml 518 ml 2814 ml Intake Oral 518 ml 518 ml IV Total 1296 ml 2296 ml # Voids 4 4 Exam Gen. patient is lying comfortably in hospital bed HEENT: Head is normocephalic atraumatic, Pupils equal and reactive, extraocular movements intact, Lungs clear to auscultation bilaterally Heart regular rate and rhythm without murmurs gallops or rubs Abdomen soft nontender without hepatosplenomegaly Extremities pulses are present dorsalis pedis posterior tibialis and radial. tSkin is warm and dry there are no rashes, Psych alert and oriented to person place and time Neuro cranial nerves II through XII are grossly intact Lymph: There is no lymphadenopathy appreciated in the cervical supra infraclavicular regions : no escobedo IVs and Medications Medications Reviewed: Medications were reviewed in detail Lab and Diagnostics Result Diagram: 07/16/1762907/16/17629 Additional Diagnostics DATE OF SURGERY: 06/25/2017 TYPE OF OPERATION: Esophagogastroduodenoscopy. PREOPERATIVE DIAGNOSIS(ES): Esophageal varices surveillance, cirrhosis. POSTOPERATIVE DIAGNOSIS(ES): 1. Complete obliteration esophageal varices. 2. Moderate portal hypertensive gastropathy. ANESTHESIA: Monitored anesthesia care. COMPLICATIONS: None. BLOOD LOSS: Minimal. DESCRIPTION OF PROCEDURE: After risks and benefits were explained, the informed consent was obtained. After anesthesia administered, upper endoscope was inserted into the mouth, intubated the esophagus, stomach, second portion of duodenum mucosa is carefully examined. After the procedure done, the scope withdrawn and procedure terminated. FINDINGS: Upon inspection esophagus showed no evidence of esophageal varices from complete obliteration from prior banding. Z-line located at 45 cm from incisors. Upon entering the stomach, there was moderate portal hypertensive gastropathy. Retroflexion showed no gastric varices. Duodenal bulb, first and second portion normal. IMPRESSIONS: 1. Stable complete obliteration esophageal varices. 2. Moderate portal hypertensive gastropathy. Assessment & Plan 66-year-old gentleman with past medical history of alcoholic cirrhosis s/p TIPS procedure and recent endoscopy with which showed stable complete obliteration esophageal varices and moderate portal hypertensive gastropathy presented with dark stool and vomiting of coffee-ground matter # Upper GI bleeding due to bleeding portal hypertension gastropathy,poa,acute -IV fluids NS at 100ml/h ,octreotide and protonix drip started . Continue with that -GI Dr Dex consulted by ED and EGD done shortness of coffee-ground material in the stomach with portal hypertension gastropathy. Mild gastritis. No varices -was Initially npo but will start on clears now -on bowel prep for colonoscopy tomorrow as he never had one before. # Blood loss Anemia., Acute on chronic -Initial Hb 9.5,hb 6.7 today. Transfusion of 2 PRBCs ordered. - Monitor hemoglobin # alcoholic cirrhosis -Continue Lasix, spironolactone , Lactulose ppx dvt with scd due to GI bleed,ppi drip Full code per patient Patient admitted under inpatient status with expected length of stay > 2 midnights for severity of present symptoms, complexities of treatment plan and risk for adverse events VTE Mechanical Devices: Venous Foot Pump Resuscitation Status: CPR: Attempt Resuscitation Jony Davis MD Jul 16, 2017 15:37
--- NOTE | 2017-07-16 15:51 | PCM.ANEP1 ---
Post Anesthesia PACU Phase 1 Assessment Date of Service: Jul 16, 2017 Vital Signs Vital Signs Date Time Temp Pulse Resp B/P Pulse Ox O2 Delivery O2 Flow Rate FiO2 07/16/17 15:48 80 14 123/80 92 Room Air 07/16/17 14:37 76 16 119/72 96 Room Air 07/16/17 13:20 37.0 76 18 116/65 07/16/17 10:48 36.8 78 18 110/67 98 Room Air 07/16/17 09:40 37.1 80 18 116/68 07/16/17 09:26 79 07/16/17 09:16 37.0 78 18 123/72 Anesthetic Administered: GA Level of Alertness: Sleepy, easy to arouse MCMAHAN's with Equal Strength: Yes Pain: No Nausea or Vomiting: No CV Function & Hydration Stable: Yes Airway Device: Oxygen Delivery: Room Air Lungs: Normal Air Movement PACU Phase 2 Assessment Complications: No Follow up Care: N/A Patient Instructions Provided: N/A Geoff Arroyo MD Jul 16, 2017 15:51
--- NOTE | 2017-07-16 16:17 | ENDO ---
[address] [address] ENDOSCOPY PROCEDURE PATIENT: BIRD GALAN : 1950 MR#: [id number] ADMIT: 07/15/2017 JOB ID: [id number] TYPE OF OPERATION: Esophagogastroduodenoscopy with biopsy and colonoscopy with biopsy. PREOPERATIVE DIAGNOSIS(ES): Gastrointestinal bleed. POSTOPERATIVE DIAGNOSIS(ES): 1. Mild nonerosive gastritis. 2. Moderate portal hypertensive gastropathy. 3. Edematous colon seen throughout with a normal terminal. Status post biopsy. ANESTHESIA: Monitored anesthesia care. COMPLICATIONS: None. BLOOD LOSS: Minimal. DESCRIPTION OF PROCEDURE: After the risks and benefits were explained to the patient, informed consent was obtained. After anesthesia was administered, the upper endoscope was inserted through mouth, intubating the esophagus, stomach, and second portion of the duodenum and the mucosa carefully examined. After procedure was done, the scope was withdrawn and the procedure terminated. The colonoscope was then inserted from the rectum to the terminal ileum and the mucosa carefully examined. Prep of the patient was excellent. After the procedure was done, the scope was withdrawn and the procedure terminated. FINDINGS: Upon inspection of the esophagus, the esophagus was normal, without masses, ulcers, or lesions. No esophageal varices were seen. Z-line located 45 cm from the incisors. Upon entering stomach, there was mild portal hypertensive gastropathy that was seen. Mild nonerosive gastritis. No overt signs of GI bleeding. Retroflexion showed no evidence of gastric varices. Duodenal bulb, first and second portion were normal. Biopsies taken at the duodenum. Upon inspection of the anus, no masses, hemorrhoids, ulcers, or fissures that were seen. Throughout the entire examination, there were no polyps, masses, or lesions. There was edematous colon that was seen throughout. Terminal ileum appeared normal, without evidence of overt signs of bleeding. Biopsies taken in the random colon. Retroflexion was not performed. IMPRESSION: 1. Edematous colon. Otherwise normal terminal ileum 2. Moderate portal hypertensive gastropathy. 3. Mild nonerosive gastritis. RECOMMENDATIONS: 1. Await pathology results. 2. Transfuse packed red blood cells per hospitalist team as needed. 3. If the patient's hemoglobin is stable, without overt signs of bleeding, the patient can be followed as an outpatient. MTDD
[2017-07-16] MEDS: Lactulose 20 Gm/30 mL 30 mL Syrup PO SCH (20:07)
[2017-07-16] MEDS ORDERED: Lactulose 10 Gm/15 mL 473 mL Solution PO SCH (20:30)
[2017-07-17 01:03] VITALS: BP 119/65; PULSE 82; RESP 18; O2SAT 94
[2017-07-17] MEDS: 0.9% Sodium Chloride 1,000 ML IV SCH (01:22)
[2017-07-17] MEDS: Pantoprazole Inj 80 MG in 0.9% Sodium Chloride 80 ML IV SCH ×2 (01:25→01:53)
[2017-07-17 04:47] VITALS: BP 121/66; PULSE 78; RESP 18; O2SAT 94
--- NOTE | 2017-07-17 06:03 | NUR ---
Uneventful Night: Pt had an uneventful night, no c/o pain, chest pain or SOB. Pt slept off/on throughout the night, pleasant and cooperative with care.
[2017-07-17 06:47] LABS: BASOPHILS % (AUTO) 0.8 % (0-3); EOSINOPHILS % (AUTO) 4.9 % (0-5); MONOCYTES % (AUTO) 13.2 % (4-12); Mean Corpuscular Hemoglobin 32.6 pg (27.0-35.0); Mean Corpuscular Volume 95.2 fL (81-100); NEUTROPHILS % (AUTO) 59.3 % (40-74); Platelet Count 58 bil/L (150-400)
[2017-07-17] MEDS: Lactulose 20 Gm/30 mL 30 mL Syrup PO SCH (08:30)
[2017-07-17 09:28] VITALS: BP 116/66; PULSE 75; RESP 18; O2SAT 95
[2017-07-17 10:10] VITALS: PULSE 82
[2017-07-17] MEDS ORDERED: Furosemide 10 mg/mL 2 mL Inj IVPUSH ONE (10:33)
--- NOTE | 2017-07-17 11:06 | PCM.DIMED ---
Discharge Instructions Date of Service Jul 17, 2017 Dates of Hospitalization Jul 15, 2017 at 09:14 Discharge Diagnosis Discharge Diagnosis # Upper GI bleeding due to bleeding portal hypertension gastropathy,poa,acute # Blood loss Anemia. Requiring transfusion, Acute on chronic # alcoholic cirrhosis Diet Discharge Diet: Low fat, Low Sodium Activity Discharge Activity: Limited until seen by PCP Call your provider Call your provider for: Fever or Chills, Shortness of breath, Bleeding, Chest pain, Vomitting, Excessive diarrhea, Weakness (unilateral) Patient Instructions Patient Instructions You were hospitalized due to upper GI bleeding from portal hypertension gastropathy. You underwent endoscopy and no active bleeding seen. Please take Protonix as prescribed. You also underwent screening colonoscopy which showed edematous colon probably due to fluid overload and low albumin.You had anemia requiring transfusion of 2 PRBCs.You had low white cell count, low hemoglobin and low platelets partly due to hemodilution because of IV fluid infusion. Please follow-up with PCP in 1 week and get your CBC/blood count rechecked. Follow-up Provider: Marci Jacinto Follow-up with PCP in: 1 week Provider: Surya Kowalski MD Follow-up in: 3 weeks Jony Davis MD Jul 17, 2017 11:06
[2017-07-17] MEDS ORDERED: PANT20T PO (11:07)
--- NOTE | 2017-07-17 11:16 | NUR ---
Social Work-discharge: Data:EMR Reviewed. Pt is on day 2 of hospitalization for GI Bleed per H&P. Pt is medically stable for discharge. Pt has been up independent in his room. Pt confirms his will provide transport home today. No discharge needs identified. All updated and agreeable to plan. Assessment:Pt who is independent at baseline. Plan:Pt to discharge home today via POV. No discharge needs identified. All updated and agreeable to plan. CHANDA Vuong
--- NOTE | 2017-07-17 11:51 | PCM.PNMED ---
Subjective Date of Service Jul 17, 2017 Subjective GASTROENTEROLOGY PROGRESS NOTE: Attending Physician: Surya Kowalski MD Resident Physician: Jessika Danielle DO No acute events overnight. H/H appears stable and patient is without overt signs of active bleeding. He states that he is feeling well and tolerating his diet. He denies abdominal pain, nausea, hematemesis, bloody or dark colored stool and he is ambulating without difficult. Exam Vital Signs Vital Sign - Last Date Time Temp Pulse Resp B/P Pulse Ox O2 Delivery O2 Flow Rate FiO2 07/17/17 04:47 37.0 78 18 121/66 94 Room Air 07/15/17 13:15 2 Intake and Output 07/16/17 07/16/17 07/17/17 Cumulative From/Thru 15:00 23:00 07:00 07/15/17 05:41 - 07/17/17 06:36 Intake Total 3160 ml 1090 ml 2194 ml 9258 ml Output Total 100 ml 300 ml 400 ml Balance 3160 ml 990 ml 1894 ml 8858 ml Intake Oral 1500 ml 250 ml 800 ml 3068 ml IV Total 1030 ml 840 ml 1394 ml 5560 ml Packed Cells 630 ml 630 ml Output Urine Total 100 ml 300 ml 400 ml # Voids 2 1 7 # Bowel Movements 5 0 5 Exam General: Well appearing, age-appropriate man in no acute distress. HEENT: Normocephalic, atraumatic. Anicteric sclera. Mucous membranes moist/pink Lungs: Clear to auscultation bilaterally with no crackles, wheezes, or rhonchi. Cardiovascular: Regular rate/rhythm. No murmurs Abdomen: Soft, Non-tender, Non-distended, No masses, Normoactive bowel tones Extremities: No edema Skin: Warm and dry. No obvious rashes or ulcerations Neurological: AOx3, No focal neurologic deficit. Normal speech IVs and Medications Medications Reviewed: Medications were reviewed in detail Lab and Diagnostics Result Diagram: 07/17/1761907/17/17619 X-Rays, CTs and MRIs 07/15/17 - X-RAY CHEST ONE VIEW, PORTABLE IMPRESSION: 1. No acute cardiopulmonary disease. Approved by: Sherif Rodarte M.D. on 07/15/2017 at 8:53 . Additional Diagnostics 07/15/2017 - PROCEDURE: EGD PREOPERATIVE DIAGNOSIS(ES): Melena. POSTOPERATIVE DIAGNOSIS(ES): 1. Mild nonerosive gastritis. 2. Moderate portal hypertensive gastropathy with some coffee-ground blood that was seen in the stomach most likely cause of the bleed. No active bleeding that was seen. 3. Complete obliteration of esophageal varices. IMPRESSIONS: 1. Mild nonerosive gastritis. 2. Coffee-ground material was seen in the stomach with mild portal hypertensive gastropathy that was seen most likely the cause. RECOMMENDATIONS: 1. Continue Protonix and Octreotide drip at this point in time. 2. GoLYTELY prep tonight for colonoscopy for tomorrow. The patient never had a colonoscopy in the past. Will continue to follow. Surya Kowalski MD 07/15/17 1303 07/16/17 - TYPE OF OPERATION: COLONOSCOPY with BIOPSY FINDINGS: Upon inspection of the esophagus, the esophagus was normal, without masses, ulcers, or lesions. No esophageal varices were seen. Z-line located 45 cm from the incisors. Upon entering stomach, there was mild portal hypertensive gastropathy that was seen. Mild nonerosive gastritis. No overt signs of GI bleeding. Retroflexion showed no evidence of gastric varices. Duodenal bulb, first and second portion were normal. Biopsies taken at the duodenum. Upon inspection of the anus, no masses, hemorrhoids, ulcers, or fissures that were seen. Throughout the entire examination, there were no polyps, masses, or lesions. There was edematous colon that was seen throughout. Terminal ileum appeared normal, without evidence of overt signs of bleeding. Biopsies taken in the random colon. Retroflexion was not performed. IMPRESSION: 1. Edematous colon. Otherwise normal terminal ileum 2. Moderate portal hypertensive gastropathy. 3. Mild nonerosive gastritis. RECOMMENDATIONS: 1. Await pathology results. 2. Transfuse packed red blood cells per hospitalist team as needed. 3. If the patient's hemoglobin is stable, without overt signs of bleeding, the patient can be followed as an outpatient. Surya Kowalski MD 07/16/17 1547 . Assessment & Plan 66-year-old gentleman with history of alcoholic cirrhosis status post TIPS procedure, esophageal varices with complete obliteration on recent upper endoscopy (06/25/17), which also showed moderate portal hypertensive gastropathy who presented to the ED with melena, diarrhea, and vomiting. Upper GI bleeding secondary to portal hypertension gastropathy in setting of alcoholic cirrhosis. - EGD showed mild nonerosive gastritis, complete obliteration of esophageal varices and moderate portal hypertensive gastropathy which is most likely source of bleeding - Colonoscopy with an edematous colon but otherwise normal terminal ileum. most likely from hypoalbuminemia from cirrhosis and ppi and octreotide gtt giving volume to patient causing hemodilution. - H/H stable and patient without signs of active bleeding. - From a GI standpoint patient is stable for discharge. RECOMMENDATIONS: - Followup in the GI clinic - Continue PPI, lasix, spironolactone and lactulose - Await pathology results. . VTE Mechanical Devices: Venous Foot Pump Resuscitation Status: CPR: Attempt Resuscitation Jessika Danielle DO Jul 17, 2017 08:50 Surya Kowalski MD Jul 17, 2017 13:01
--- NOTE | 2017-07-17 13:12 | NUR ---
Discharge Pt discharged at this time, all belongings gathered and returned to pt. IV D/Cd intact, tele monitor removed. Hard copy of new script given. VSS, No complains of increased pain, bloody emesis or stool. Hard copy of new script given to pt. Discharge packet printed and reviewed with pt. Pt in room awaiting ride home from spouse
--- NOTE | 2017-07-17 20:12 | PCM.DC.MED ---
Discharge Summary Date of Service Jul 17, 2017 Dates of Hospitalization Date of Hospital Admission Jul 15, 2017 at 09:14 Date of Discharge: Jul 17, 2017 Providers: Admitting Physician: Jony Mckeon MD Primary Care Physician: Marci Jacinto Attending Physician: Jony Mckoen MD Diagnosis at Time of Discharge Diagnosis at Time of Discharge # Upper GI bleeding due to bleeding portal hypertension gastropathy,poa,acute # Blood loss Anemia. Requiring transfusion, Acute on chronic # alcoholic cirrhosis Consultations GI Dr Kowalski Procedures XRay, CTs & MRIs 07/15/17 - X-RAY CHEST ONE VIEW, PORTABLE IMPRESSION: 1. No acute cardiopulmonary disease. Approved by: Sherif Rodarte M.D. on 07/15/2017 at 8:53 . Other Diagnostics 07/15/2017 - PROCEDURE: EGD PREOPERATIVE DIAGNOSIS(ES): Melena. POSTOPERATIVE DIAGNOSIS(ES): 1. Mild nonerosive gastritis. 2. Moderate portal hypertensive gastropathy with some coffee-ground blood that was seen in the stomach most likely cause of the bleed. No active bleeding that was seen. 3. Complete obliteration of esophageal varices. IMPRESSIONS: 1. Mild nonerosive gastritis. 2. Coffee-ground material was seen in the stomach with mild portal hypertensive gastropathy that was seen most likely the cause. RECOMMENDATIONS: 1. Continue Protonix and Octreotide drip at this point in time. 2. GoLYTELY prep tonight for colonoscopy for tomorrow. The patient never had a colonoscopy in the past. Will continue to follow. Surya Kowalski MD 07/15/17 1303 07/16/17 - TYPE OF OPERATION: COLONOSCOPY with BIOPSY FINDINGS: Upon inspection of the esophagus, the esophagus was normal, without masses, ulcers, or lesions. No esophageal varices were seen. Z-line located 45 cm from the incisors. Upon entering stomach, there was mild portal hypertensive gastropathy that was seen. Mild nonerosive gastritis. No overt signs of GI bleeding. Retroflexion showed no evidence of gastric varices. Duodenal bulb, first and second portion were normal. Biopsies taken at the duodenum. Upon inspection of the anus, no masses, hemorrhoids, ulcers, or fissures that were seen. Throughout the entire examination, there were no polyps, masses, or lesions. There was edematous colon that was seen throughout. Terminal ileum appeared normal, without evidence of overt signs of bleeding. Biopsies taken in the random colon. Retroflexion was not performed. IMPRESSION: 1. Edematous colon. Otherwise normal terminal ileum 2. Moderate portal hypertensive gastropathy. 3. Mild nonerosive gastritis. RECOMMENDATIONS: 1. Await pathology results. 2. Transfuse packed red blood cells per hospitalist team as needed. 3. If the patient's hemoglobin is stable, without overt signs of bleeding, the patient can be followed as an outpatient. Surya Kowalski MD 07/16/17 1544 . Brief History per HPI 66-year-old gentleman with past medical history of alcoholic cirrhosis s/p TIPS procedure and recent endoscopy with which showed stable complete obliteration esophageal varices and moderate portal hypertensive gastropathy presented with multiple episodes of dark stool which started yesterday. He also had vomiting today twice of coffee-ground matter . He is a normal alcoholic cirrhosis patient s/p TIPS procedure 8 years ago. He undergoes routine surveillance endoscopy, latest one on 06/25/17 which showed stable complete obliteration esophageal varices and moderate portal hypertensive gastropathy last alcohol drink Jul 2016 ED course: vitals and exam unremarkable . Hb 9.5,Tbili 1.8,AST 53,albumin 3.2 IV fluids ,octreotide drip and protonix drip started GI consulted Hospital Course 66-year-old gentleman with past medical history of alcoholic cirrhosis s/p TIPS procedure and recent endoscopy with which showed stable complete obliteration esophageal varices and moderate portal hypertensive gastropathy presented with dark stool and vomiting of coffee-ground matter # Upper GI bleeding due to bleeding portal hypertension gastropathy,poa,acute -IV fluids NS at 100ml/h ,octreotide and protonix drip started . Continue with that -GI Dr Kowalski consulted by ED and EGD done shows coffee-ground material in the stomach with portal hypertension gastropathy. Mild gastritis. No varices.no active bleeding -discharged on protonix 20 mg bid -colonoscopy shows edematous cololn.likley due to IV fluids,low albumin due to cirrhosis.resume diueretics on day of discharge # Blood loss Anemia., Acute on chronic -Initial Hb 9.5,hb 6.7 9/5. Transfusion of 2 PRBCs done - HB 9/6 7.4.partly dilutional since wbc,and platelets also dropped .no need for transfusion per GI,resume diuretics # pancytopenis -due to cirrhosis and fluids .resume diuretics.cbc in 1 week with PCP # alcoholic cirrhosis -Continue Lasix, spironolactone , Lactulose ppx dvt with scd due to GI bleed,ppi drip dcd on discharge Full code per patient discharged home condition stable Exam Vital Signs (Last) Date Time Temp Pulse Resp B/P Pulse Ox O2 Delivery O2 Flow Rate FiO2 07/17/17 10:10 82 07/17/17 09:28 37.0 18 116/66 95 Room Air 07/15/17 13:15 2 Exam Gen. patient is lying comfortably in hospital bed HEENT: Head is normocephalic atraumatic, Pupils equal and reactive, extraocular movements intact, Lungs clear to auscultation bilaterally Heart regular rate and rhythm without murmurs gallops or rubs Abdomen soft nontender without hepatosplenomegaly Extremities pulses are present dorsalis pedis posterior tibialis and radial. tSkin is warm and dry there are no rashes, Psych alert and oriented to person place and time Neuro cranial nerves II through XII are grossly intact Lymph: There is no lymphadenopathy appreciated in the cervical supra infraclavicular regions : no escobedo Test 07/15/17 05:55 07/15/17 08:50 07/16/17 06:30 07/17/17 06:20 Prothrombin Time 15.1sec (8.1-12.5) Prothromb Time International Ratio 1.40ratio Troponin T 0.010ug/L (0.0-0.011) Hold [place] Top Tube Received (Received) Urine Color Yellow (YELLOW) Urine Appearance Clear (CLEAR,HAZY) Urine pH 6.0 (5.0-8.0) Urine Specific [place] 1.025 (1.003-1.035) Urine Protein Negativemg/dL (NEG,TRACE) Urine Glucose (UA) Negativemg/dL (NEGATIVE) Urine Ketones Negativemg/dL (NEGATIVE) Urine Occult Blood Negative (NEGATIVE) Urine Nitrite Negative (NEGATIVE) Urine Bilirubin Negative (NEGATIVE) Urine Urobilinogen Normalmg/dL (NORMAL) Urine Leukocyte Esterase Negative (NEGATIVE) Urine RBC 0-2/hpf (0-2) Urine WBC 0-5/hpf (0-5) Urine Epithelial Cells Few/hpf (NONE-MOD) Urine Crystals None seen (NONE SEEN) Urine Bacteria None/hpf (NONE-FEW) Urine Hyaline Casts 03/30/lpf (NONE) Urine Granular Casts None seen (NONE SEEN) Urine Waxy Casts None seen (NONE SEEN) Urine Red Blood Cell Casts None seen (NONE SEEN) Urine White Blood Cell Casts None seen (NONE SEEN) Urine Mucus Present (None Seen) Urine Trichomonas None seen (NONE SEEN) Urine Yeast None (NONE SEEN) Urinalysis Comment None Urine Culture Reflexed Not indicated Magnesium Level 1.7mg/dL (1.6-2.6) White Blood Count 2.7th/mm3 (3.8-10.1) Red Blood Count 2.27mil/mm3 (4.40-5.80) Hemoglobin 7.4g/dL (13.8-17.2) Hematocrit 21.6% (41.0-50.0) Mean Corpuscular Volume 95.2fL (81-100) Mean Corpuscular Hemoglobin 32.6pg (27.0-35.0) Mean Corpuscular Hemoglobin Concent 34.3% (32.0-37.0) Red Cell Distribution Width 18.1% (12.3-15.4) Platelet Count 58bil/L (150-400) Neutrophils (%) (Auto) 59.3% (40-74) Lymphocytes (%) (Auto) 21.4% (14-46) Monocytes (%) (Auto) 13.2% (4-12) Eosinophils (%) (Auto) 4.9% (0-5) Basophils (%) (Auto) 0.8% (0-3) Sodium Level 140mEq/L (134-144) Potassium Level 3.7mEq/L (3.5-5.2) Chloride Level 110mEq/L (97-108) Carbon Dioxide Level 17mmol/L (18-29) Blood Urea Nitrogen 21mg/dL (8-27) Creatinine 0.83mg/dL (0.76-1.27) Estimat Glomerular Filtration Rate 99mL/min (>59) Glucose Level 96mg/dL (60-99) Calcium Level 7.3mg/dL (8.5-10.1) Total Bilirubin 1.2mg/dL (0.0-1.2) Aspartate Amino Transf (AST/SGOT) 51U/L (0-50) Alanine Aminotransferase (ALT/SGPT) 31U/L (0-44) Alkaline Phosphatase 53U/L (25-160) Total Protein 4.6g/dL (6.4-8.4) Albumin 2.7g/dL (3.4-5.0) Discharge Medications Discharge Medications Furosemide (Furosemide) 40 Mg Tablet 40 MG PO DAILY (Reported) Lactulose (Lactulose) 10 Gm/15 Ml Solution 30 ML PO TID (Reported) Melatonin (Melatonin) 3 Mg Tablet 3 MG PO HS (Reported) Pantoprazole DR (Protonix) 20 Mg Tablet 20 MG PO BID Prescribed by: JONY MCKEON MD Spironolactone (Spironolactone) 100 Mg Tablet 100 MG PO DAILY (Reported) As needed Naproxen Sodium (Aleve) 220 Mg Capsule 220 MG PO PRN For Pain (Reported) Followup Plan Disposition: home Discharge Diet: Low fat, Low Sodium Discharge Activity: Limited until seen by PCP Patient Instructions You were hospitalized due to upper GI bleeding from portal hypertension gastropathy. You underwent endoscopy and no active bleeding seen. Please take Protonix as prescribed. You also underwent screening colonoscopy which showed edematous colon probably due to fluid overload and low albumin.You had anemia requiring transfusion of 2 PRBCs.You had low white cell count, low hemoglobin and low platelets partly due to hemodilution because of IV fluid infusion. Please follow-up with PCP in 1 week and get your CBC/blood count rechecked. Follow-up Provider: Marci Jacinto Follow-up with PCP in: 1 week Provider: Surya Kowalski MD Follow-up in: 3 weeks Time spent 35 minutes coordinating discharge and answering questions copies to: Surya Kowalski MD; Marci Jacinto Melaku MD Jul 17, 2017 20:12
--- NOTE | 2017-07-19 11:58 | PATH ---
SURGICAL PATHOLOGY Attending Physician:Surya Kowalski MD CASE STATUS: Signed Out PATIENT NAME: BIRD GALAN PID: [id number] : 1950 DATE COLLECTED:07/17/2017 19:17 SPECIMEN: 1: Duodenum, Biopsy 2: Colon, Biopsy CLINICAL HISTORY: 1). DUODENUM 2). RANDOM COLON X 1 FINAL DIAGNOSIS: 1. Duodenum, Biopsy: Duodenal mucosa with no diagnostic abnormality. Negative for active inflammation, features of sprue, dysplasia and malignancy. 2. Random Colon, Biopsy: Colonic mucosa with no diagnostic abnormality. Negative fro active, chronic and microscopic colitis. Negative for dysplasia or malignancy. ICD10: R10.9 GROSS DESCRIPTION: The specimen is received in two formalin filled containers labeled with the patient's name. 1). The specimen is labeled "duodenum" and consists of a 0.2 x 0.2 x 0.2 CM portion of tissue which is entirely submitted in cassette 1A. 2). The specimen is labeled "random colon" and consists of a 0.2 x 0.2 x 0.2 CM portion of tissue which is entirely submitted in cassette 2A. 07/17/2017DC ICD-9 CODES: CPT CODES: 1: 07680 2: 85406 Electronically Signed Out Gauri Lindsey MD [facility] [address], [place] [address] Technical component performed at [facility], [facility] [address], [place], [address]
== END 2017-07-17 13:46 | disposition home or self-care (01) | DRG 442 ==
LOC: SED 05:35 → MPC 09:14
PROVIDERS: ADMIT Internal Medicine; ATTEND Internal Medicine
PROC: 0DJ08ZZ Inspection of Upper Intestinal Tract, Via Natural or Artificial Opening Endoscopic (ICD-10-PCS; 2017-07-15 13:00)
PROC: 30233N1 Transfusion of Nonautologous Red Blood Cells into Peripheral Vein, Percutaneous Approach (ICD-10-PCS; 2017-07-16)
PROC: 0DBK8ZX Excision of Ascending Colon, Via Natural or Artificial Opening Endoscopic, Diagnostic (ICD-10-PCS; 2017-07-16)
PROC: 0DB98ZX Excision of Duodenum, Via Natural or Artificial Opening Endoscopic, Diagnostic (ICD-10-PCS; principal; 2017-07-16 15:00)
DX: K76.6 Portal hypertension (principal); K92.0 Hematemesis; D62 Acute posthemorrhagic anemia; D61.818 Other pancytopenia; Z87.891 Personal history of nicotine dependence; K70.30 Alcoholic cirrhosis of liver without ascites; K31.89 Other diseases of stomach and duodenum; K29.60 Other gastritis without bleeding

== ENCOUNTER 2017-07-26 15:58 | Emergency (ER) | payer OTHER ==
[~2017-07-26] VITALS: Ht 188 cm; Wt 215.0 kg
[~2017-07-26 15:58] MED LIST changes: -FURO-128 PO; +FURO40TA4 PO; +LACT10SO PO; -LACT10SO60 PO; -MELA1TAB9 PO; +MELA3TAB35 PO; -METO-386 PO; +NAPR220C11 PO; +PANT20T PO; +SPIR100T3 PO
[2017-07-26 16:04] VITALS: BP 127/79; PULSE 94; RESP 16; O2SAT 96
--- NOTE | 2017-07-26 16:20 | ED.REPORT ---
HPI-Abd Pain M 40 and Over Date of Service Jul 26, 2017 ED Provider: Nancie Toledo MD Pt is a 66 year old male with a hx of alcoholic cirrhosis presenting to the ED complaining of abdominal pain and swelling onset since he was discharged from here 10 days ago. Associated symptoms include SOB onset about a week ago. Denies nausea, vomiting, fever, or chills. He states that the Lasix he usually takes usually makes him void urine every 10 minutes, but lately he has not been voiding urine very much. The pt spoke with Dr. Kowalski on the phone and was referred to the ER to see if he requires a paracentesis. His last paracentesis was about 9 years ago. He was admitted from July 15- for a GI bleed and had a TIPS procedure done. Nursing Notes Stated Complaint: ABDOMINAL PAIN AND SWELLING/REF DR ROTHMAN Chief Complaint: Male Abdominal Pain Nursing Notes Reviewed: Yes Allergies: Coded Allergies: No Known Allergies (Verified Allergy, Unknown, 07/26/17) Scheduled Furosemide (Furosemide) 40 Mg Tablet 40 MG PO DAILY Lactulose (Lactulose) 10 Gm/15 Ml Solution 30 ML PO TID Melatonin (Melatonin) 3 Mg Tablet 3 MG PO HS Pantoprazole DR (Protonix) 20 Mg Tablet 20 MG PO BID Spironolactone (Spironolactone) 100 Mg Tablet 100 MG PO DAILY Scheduled PRN Naproxen Sodium (Aleve) 220 Mg Capsule 220 MG PO PRN For Pain General Time Seen by MD: 16:08 Chief Complaint Other (Abdominal swelling) Hx Obtained From: Patient Arrived By: Walk-in Sudden in Onset?: No Onset Occurred: 1 week ago Symptom Duration: Since onset Progression since Onset: Gradually worsening Location: : Diffuse Quality: Painful Severity: Current: Mild Severity: Maximum: Moderate Recent Healthcare: Recent doctor visit, Recent hospitalization Similar Sx Previous: Yes Past Medical History Past Medical History Alcoholic cirrhosis status post TIPS procedure Esophageal varices with banding GI bleed Past Surgical History TIPS procedure Hernia repair Smoking History Former Smoker Social History Alcohol Use: Denies alcohol use Drug Use: Denies drug use Ambulatory Status Independent Review of Systems Constitutional: Denies: Chills, Fever Respiratory: Reports: Shortness of breath GI: Reports: Abdominal pain (and swelling), Denies: Nausea, Vomiting Male: Reports Urination decreased Complete sys rev & neg: except as marked. Physical Exam Initial Vital Signs Vital Signs (First) Date Time Temp Pulse Resp B/P Pulse Ox O2 Delivery O2 Flow Rate FiO2 07/26/17 16:04 37.3 94 16 127/79 96 Room Air Initial VS: Reviewed Head / Eyes: Atraumatic, Normocephalic, PERRL ENT: Mucous membranes moist, Conjunctiva normal, No scleral icterus Extremities: Vascular intact, Neuro intact, No swelling, No tenderness Skin: Warm, Dry, No cyanosis Neurologic: Alert, Oriented, Nonfocal Psychiatric: Mood/affect normal, Behavior normal, Normal thought content General/Constitutional: Awake, Alert, No acute distress Respiratory / Chest: No respiratory distress Abdomen: Atraumatic, Non-tender, No guarding, No rebound Bowel Sounds / Distention: Positive: Distention moderate (Not tense) Back: Atraumatic, Inspection NL Re-Eval/Medical Decision Med Decision/Clinical Course 66-year-old male with a recurrence of his ascites consistent with his tips failing. Patient was referred to the emergency department for concern that he may be in respiratory distress. On my evaluation in the emergency department he has no need for emergent paracentesis, he has a normal respiratory status, no signs of infection. We did discuss return precautions and how to go about obtaining his paracentesis, he will call the GI clinic on Saturday morning and return if he has any worsening symptoms in the meantime. Time of Eval: 16:27 Patient Status: Condition improved Re-Evaluation/Progress Note: Discussed plan to consult GI. Time of Eval: 17:48 Patient Status: Condition improved Re-Evaluation/Progress Note: Discussed plan for discharge. Pt understands and agrees with plan for outpatient paracentesis. Consultation #1: Referral / Consult Name: French Church MD Call Returned at: 17:24 Note: Dr. Church, GI, reports that his TIPS failed and needs to be evaluated. Consultation #2: Referral / Consult Name: French Church MD Call Returned at: 17:28 Note: Report from clinic nursing staff by phone the patient may be in significant respiratory distress therefore was referred to the emergency department. Discussed with Dr. Church my assessment that the patient while symptomatic from having volume overload and new recurrent ascites patient does not require an emergent paracentesis at this time as he is in no respiratory distress, normal oxygen saturation, speaking in full senctences, no infectious symptoms. Dr. Church reccomends patient call GI clinic on Saturday morning to arrange outpatient paracentesis. He may return to the emergency department if worsening symptoms over the weekend. Counseled Regarding: Diagnosis, Lab results, Need for follow-up, When/why to return to ED Discharge & Departure Primary Impression: Ascites Ascites type: due to alcoholic cirrhosis Qualified Code: K70.31 - Alcoholic cirrhosis of liver with ascites Disposition: Home Vital Signs - All Vital Signs Date Time Temp Pulse Resp B/P Pulse Ox O2 Delivery O2 Flow Rate FiO2 07/26/17 16:04 37.3 94 16 127/79 96 Room Air )( All Prior VS Reviewed: Yes Condition: Improved Call your GI doctor's clinic on Saturday to arrange for follow-up including an outpatient paracentesis. Over the weekend if you develop worsening symptoms including severe shortness of breath, fevers, abdominal pain you should return to the emergency department. Referrals: Marci Jacinto (PCP) Scribe Attestation Portions of this note were transcribed by Dayna Folrez. I, Dr. Toledo, personally performed the history, physical exam and medical decision-making; I reviewed and confirmed the accuracy of the information in the transcribed note. Signed by: Joel Moreno, 07/26/17. copies to: Marci Jacinto Sarah C MD Jul 26, 2017 16:20 DAYNA FLOREZ Jul 26, 2017 16:26
== END 2017-07-26 17:55 | disposition home or self-care (01) ==
LOC: SED 15:58
DX: K70.31 Alcoholic cirrhosis of liver with ascites (principal); R06.02 Shortness of breath; Z87.891 Personal history of nicotine dependence